=== PATIENT | female | born 1990 | race Caucasian/White ===

== ENCOUNTER 2017-04-05 11:24 | Emergency (ER) | payer OTHER ==
[2017-04-05 11:29] VITALS: RESP 18
[2017-04-05] MEDS ORDERED: KETOROLAC 30 MG/ML 1 ML VIAL IVP STA (12:21)
[2017-04-05] MEDS ORDERED: cefTRIAXone 2,000 MG in SODIUM CHLORIDE 0.9% 100 ML IVPB STA (12:29)
[2017-04-05 13:06] LABS: Anisocytosis Slight; Basophils % (A) 1 %; CH 27.2; CHCM 32.5; Eosinophils # (A) 0.1 k/uL (0-0.7); Eosinophils % (A) 2 %; HCT 36.1 % (34.0-46.0); HDW 2.62; HGB 11.4 gm/dL (11.4-16.0); Luc # (Auto) 0.14; Luc % (Auto) 2; Lymphocytes # (A) 2.5 k/uL (1.0-4.8); Lymphocytes % (A) 35 %; MCH 26.6 pg (25.0-35.0); MCHC 31.7 g/dL (31.0-37.0); MCV 83.9 fL (80.0-100.0); Mean Platelet Volume 7.1; Monocytes # (A) 0.4 k/uL (0-1.0); Monocytes % (A) 6 %; Neutrophils # (A) 3.9 k/uL (1.3-7.7); Neutrophils % (A) 55 %; WBC 7.1 k/uL (3.8-10.6); WBC (Perox) 7.06
--- NOTE | 2017-04-05 14:09 | CT ---
EXAMINATION TYPE: CT brain wo con DATE OF EXAM: 04/05/2017 COMPARISON: NONE HISTORY: Eye swelling CT DLP: 1296.60 mGycm. Automated Exposure Control for Dose Reduction was Utilized. TECHNIQUE: CT scan of the head is performed without contrast. FINDINGS: There is no acute intracranial hemorrhage, mass effect, or midline shift identified. The ventricles and sulci are within normal limits in size. The globes are intact and the visualized sin uses are clear. Incidental note is made of left middle nasal turbinate romeo bullosa. Inferior nasal turbinate mucosal hypertrophy with mucoperiosteal thickening is appreciated. No fluid is seen within the anterior canals. Mastoid air cells are well aerated. Soft tissue swelling is seen in the supraorbital and periorbital region on the right extending over t he nasal bridge to overlie the medial canthus. Preseptal soft tissue swelling is localized and does n ot extend into the retrobulbar fat, intraconally or extraconally. There is no engorgement of the supe rior ophthalmic veins. Extraocular muscles are symmetric. Optic nerves are unremarkable. Lenses are i n place and orbits are symmetric. IMPRESSION: 1. No acute intracranial hemorrhage, mass effect, or midline shift is seen. 2. Preseptal right periorbital soft tissue swelling extending medially over the medial canthus and na edward bridge most commonly relates to preseptal periorbital cellulitis without extension into the retro bulbar fat. No focal fluid collection is seen to suggest abscess.
--- NOTE | 2017-04-05 14:13 | CT ---
EXAMINATION TYPE: CT orbits wo con DATE OF EXAM: 04/05/2017 COMPARISON: CT brain of the same date. HISTORY: Eye swelling CT DLP: 1296.60 mGycm Automated exposure control for dose reduction was used. FINDINGS: Soft tissue swelling is seen in the supraorbital and periorbital region on the right extending over t he nasal bridge to overlie the medial canthus. Preseptal soft tissue swelling is localized and does n ot extend into the retrobulbar fat, intraconally or extraconally. There is no engorgement of the supe rior ophthalmic veins. Extraocular muscles are symmetric. Optic nerves are unremarkable. Lenses are i n place and orbits are symmetric. Osseous structures are intact including the lamina papyracea are intact. No osseous erosion is seen d eep to the soft tissue swelling to indicate osteomyelitis. Paranasal sinuses are well aerated. Lacrim al glands are symmetric. Visualized portions of the brain are discussed in the CT brain dictation of the same date. IMPRESSION: Preseptal right periorbital soft tissue swelling extending medially over the medial canthus and nasal bridge most commonly relates to preseptal periorbital cellulitis without extension into the retrobul bar fat. No focal fluid collection is seen to suggest abscess.
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
[2017-04-05 15:11] VITALS: BP 99/59; PULSE 61; TEMP 97
== END 2017-04-05 15:18 | disposition home or self-care (01) ==
LOC: EC 11:24
DX: L03.213 Periorbital cellulitis (principal); Z88.0 Allergy status to penicillin
CPT/HCPCS: 36415; 85025; 70450; 70480; 99284; 96365; 96366; 96375; J0696; J1885

== ENCOUNTER 2018-02-02 20:54 | Emergency (ER) | payer OTHER ==
[2018-02-02 21:07] VITALS: BP 136/89; RESP 18; TEMP 98.1
[2018-02-02] MEDS ORDERED: CLINDAMYCIN 150 MG CAP PO STA (21:12)
[2018-02-02] MEDS ORDERED: IBUPROFEN 600 MG TAB PO STA (21:13)
[2018-02-02] MEDS ORDERED: ACET/COD 300 MG/30 MG STARTER PACK 6 TAB BTL PO STA (21:13)
--- NOTE | 2018-02-02 21:24 | ED ---
ENT HPI - General Chief complaint: Dental/Oral Stated complaint: jaw & ear pain Time Seen by Provider: 02/02/18 21:06 Source: patient, RN notes reviewed Mode of arrival: ambulatory Limitations: no limitations - History of Present Illness Initial comments: This is a 27-year-old female who presents to the emergency department with chief complaint of dental pain. Patient states that for the past 3 days she has been experiencing left lower dental pain. She states that she has "bad teeth." She states that she has been taking ibuprofen and Tylenol with minimal relief. She states that she does not have dental insurance and has not followed up with a dentist. Denies fevers or chills, chest pain or shortness of breath, abdominal pain, nausea or vomiting. - Related Data Previous Rx's Medication Instructions Recorded Clindamycin [Cleocin] 450 mg PO TID #90 cap 02/02/18 Allergies Allergy/AdvReac Type Severity Reaction Status Date / Time Penicillins Allergy Rash/Hives Verified 02/02/18 21:06 Review of Systems ROS Statement: Those systems with pertinent positive or pertinent negative responses have been documented in the HPI. ROS Other: All systems not noted in ROS Statement are negative. Past Medical History Past Medical History: Asthma Additional Past Medical History / Comment(s): Patient has 4 living children from 3 pregnancies. She's had section and tubal ligation. History of Any Multi-Drug Resistant Organisms: None Reported Past Surgical History: Adenoidectomy, Appendectomy, Section, Ear Surgery, Tubal Ligation Additional Past Surgical History / Comment(s): Tubes in bilat ears Past Anesthesia/Blood Transfusion Reactions: No Reported Reaction Past Psychological History: Anxiety, Depression Smoking Status: Never smoker Past Alcohol Use History: None Reported Past Drug Use History: None Reported General Exam - General Exam Comments Initial Comments: General: Awake and alert, well-developed; in no apparent distress. HEENT: Head atraumatic, normocephalic. Pupils are equal, round and reactive to light. Extraocular movements intact. Oropharynx moist without erythema or exudate. Poor dentition throughout with missing crowns of teeth 18, 19 and 20. Tenderness along the gumline. No masses or areas of fluctuance noted. No facial swelling noted. Neck: Supple. Normal ROM. Cardiovascular: Regular rate and rhythm. No murmurs, rubs or gallops. Chest symmetrical. Respiratory: Lungs clear to auscultation bilaterally. No wheezes, rales or rhonchi. Normal respiratory effort with no use of accessory muscles. Musculoskeletal: Normal ROM, no tenderness bilateral upper and lower extremities. Ambulating normally. Skin: [place], warm and dry without rashes or lesions. Neurological: Alert and oriented x3. CN II-XII grossly intact. Speech is fluent and answers are appropriate. No focal neuro deficits. Psychiatric: Patient appears anxious and jittery. Limitations: no limitations Course Vital Signs 02/02/18 21:04 Temperature 98.1 F Pulse Rate 115 H Respiratory 18 Rate Blood Pressure 136/89 O2 Sat by Pulse 98 Oximetry Medical Decision Making - Medical Decision Making This is a 27-year-old female who presents to the emergency department with chief complaint of left lower dental pain. Patient is missing crowns of teeth 18, 19 and 20. This area is tender. No masses noted. Patient will be started on clindamycin. She is advised to take ibuprofen. She will be given a starter pack for Tylenol with Codeine. MAPS reviewed and no prescriptions were identified for patient. She did sign the "opioids start talking" paperwork. Recommended only taking for extreme pain. Patient will be given contact information to follow up to [facility] dental plan. Patient is in no acute distress and will be discharged home at this time. She is in agreement with plan and voices understanding. All questions answered. Disposition Clinical Impression: Dental caries Disposition: HOME SELF-CARE Condition: Good Instructions: Dental Caries (ED) Additional Instructions: Please take medications as prescribed. Please follow up with primary care provider within 1-2 days. Return to emergency department if symptoms should worsen or any concerns arise. Please follow up with the [facility] dental clinic. [facility] [place] [address]. Phone number for new patients or [phone] for existing patients. Prescriptions: Clindamycin [Cleocin] 450 mg PO TID #90 cap Is patient prescribed a controlled substance at d/c from ED?: No Referrals: None,Stated [Primary Care Provider] - 1-2 days Time of Disposition: 21:20
[2018-02-02 21:46] VITALS: PULSE 95
== END 2018-02-02 21:32 | disposition home or self-care (01) ==
LOC: EC 20:54
DX: K02.9 Dental caries, unspecified (principal); Z88.0 Allergy status to penicillin
CPT/HCPCS: 99282

== ENCOUNTER 2023-05-18 03:08 | Inpatient (IN) | payer OTHER ==
[2023-05-18] MEDS ORDERED: VANCOMYCIN IV PER PHARMACY 1 EACH MISC MISCELLANE PRN (03:43)
[2023-05-18] MEDS ORDERED: MORPHINE SULFATE 4 MG/ML SYRINGE IVP STA ×2 (03:43→05:36)
[2023-05-18] MEDS ORDERED: SODIUM CHLORIDE 0.9% 1,000 ML IV STA (03:44)
[2023-05-18] MEDS ORDERED: DIPH,PERTUS(ACELL)TETVAC-LF 0.5 ML VIAL IM ONE (04:15)
--- NOTE | 2023-05-18 04:20 | ED ---
General Adult HPI - General Chief complaint: Skin/Abscess/Foreign Body Stated complaint: Spider Bite Left hand Time Seen by Provider: 05/18/23 03:28 Source: patient, RN notes reviewed, old records reviewed Mode of arrival: ambulatory Limitations: no limitations - History of Present Illness Initial comments: Patient is a 32-year-old female with past medical history history remarkable for previous episode of MRSA, asthma who presents emergency Department complaining of a spider bite. States it was brown in color but unableto provide any further details. She was bit on the left hand. States that since that time and has become more swollen, and she is concerned for worsening infection. Has a difficult time making a fist. His pain at this site. States it has been draining somewhat. Endorses chills. Denies any known fevers. Has been taking Motrin for pain without much improvement which is fresh presents for further evaluation at this time. No history of immunocompromise state. - Related Data Previous Rx's Medication Instructions Recorded Acetaminophen Tab [Tylenol] 650 mg PO Q6HR PRN tab 12/06/22 Ibuprofen [Motrin] 800 mg PO Q8H 3 Days #9 tab 12/06/22 Allergies Allergy/AdvReac Type Severity Reaction Status Date / Time Penicillins Allergy Rash/Hives Verified 05/18/23 03:14 Review of Systems ROS Statement: Those systems with pertinent positive or pertinent negative responses have been documented in the HPI. Review of Systems: CONST: Denies fever EYES: Denies blurry vision ENT: Denies nasal congestion C/V: Denies Chest pain RESP: Denies shortness of breath GI: Denies abdominal pain : Denies dysuria SKIN: Endorses spider bite, left hand infection MSK: Denies joint pain. NEURO: Denies headache ROS Other: All systems not noted in ROS Statement are negative. Past Medical History Past Medical History: Asthma Additional Past Medical History / Comment(s): Patient has 5 living children from 4 pregnancies. She's had section and tubal ligation. History of Any Multi-Drug Resistant Organisms: MRSA Date of last positivie culture/infection: 11/27/22 MDRO Source:: Left Foot Past Surgical History: Adenoidectomy, Appendectomy, Section, Ear Surgery, Tubal Ligation Additional Past Surgical History / Comment(s): Tubes in bilat ears Past Anesthesia/Blood Transfusion Reactions: No Reported Reaction Past Psychological History: Anxiety, Depression Smoking Status: Former smoker Past Alcohol Use History: None Reported Past Drug Use History: Marijuana General Exam - General Exam Comments Initial Comments: General: Appears in mild to moderate distress secondary to pain. HEAD: Normal with no signs of head trauma. EYES: PERRLA, EOMI, conjunctiva normal, no discharge. ENT: Hearing grossly intact, normal oropharynx. RESPIRATORY: Clear breath sounds bilaterally. No wheezes, rales, or rhonchi. C/V: Tachycardic with regular rhythm. S1 and S2 auscultated. Peripheral pulses 2+ intact throughout. ABD: Abd is soft, nontender, nondistended EXT: Decreased range of motion of the left hand secondary to edema and pain. SKIN: Patient has what appears to be a spider bite located over the dorsal aspect of the left hand. Mild drainage from a site of fluctuance, with concern for abscess approximately the size of a ping-pong ball.. Erythema and edema present. NEURO: Alert and oriented 4. Limitations: no limitations Course Vital Signs 05/18/23 03:14 Temperature 98.6 F Pulse Rate 130 H Respiratory 24 Rate Blood Pressure 111/73 O2 Sat by Pulse 96 Oximetry Medical Decision Making - Medical Decision Making Was pt. sent in by a medical professional or institution (RAHUL Dumont, CIVIL DEFENSE DIRECTOR, urgent care, hospital, or group home...) When possible be specific @ -No Did you speak to anyone other than the patient for history (EMS, parent, family, police, friend...)? What history was obtained from this source @ -No Did you review nursing and triage notes (agree or disagree)? Why? @ -I reviewed and agree with nursing and triage notes Were old charts reviewed (outside hosp., previous admission, EMS record, old EKG, old radiological studies, urgent care reports/EKG's, group home records)? Report findings @ -No old charts were reviewed Differential Diagnosis (chest pain, altered mental status, abdominal pain women, abdominal pain men, vaginal bleeding, weakness, fever, dyspnea, syncope, headache, dizziness, GI bleed, back pain, seizure, CVA, palpatations, mental health, musculoskeletal)? @ -Cellulitis, spider bite, abscess, soft tissue infection, sepsis. This list is not all inclusive. EKG interpreted by me (3pts min.). @ -None done X-rays interpreted by me (1pt min.). @ -X-ray reveals soft tissue edema. No obvious bony injury or involvement. CT interpreted by me (1pt min.). @ -None done U/S interpreted by me (1pt. min.). @ -None done What testing was considered but not performed or refused? (CT, X-rays, U/S, labs)? Why? @ -None What meds were considered but not given or refused? Why? @ -None Did you discuss the management of the patient with other professionals (professionals i.e. , PA, CIVIL DEFENSE DIRECTOR, lab, RT, psych nurse, social insurance adviser, pillowcase folder, te acher, fundraising officer, medical case worker)? Give summary @ -Discussed with Dr. barakat who accepted the admission as a city call admit. Requested consults infectious disease as well as orthopedics be placed. Was smoking cessation discussed for >3mins.? @ -No Was critical care preformed (if so, how long)? @ -No Were there social determinants of health that impacted care today? How? (Homelessness, low income, unemployed, alcoholism, drug addiction, transportation, low edu. Level, literacy, decrease access to med. care, snf, rehab)? @ -No Was there de-escalation of care discussed even if they declined (Discuss DNR or withdrawal of care, Hospice)? DNR status @ -No What co-morbidities impacted this encounter? (DM, HTN, Smoking, COPD, CAD, Cancer, CVA, ARF, Chemo, Hep., AIDS, mental health diagnosis, sleep apnea, morbid obesity)? @ -None Was patient admitted / discharged? Hospital course, mention meds given and route, prescriptions, significant lab abnormalities, going to OR and other pertinent info. @ -Based on the patient's presentation and physical exam, there is concern for cellulitis as well as an infection of the left hand. I believe patient will likely be admitted for IV antibiotics. We will obtain blood cultures. Likely we'll obtain cultures. We will obtain x-ray of the left hand. Patient will be empirically started on vancomycin at this time. She'll be given analgesia medications and 1 L fluid bolus. Tetanus will be updated. Vital signs are hemodynamically stable other than for a tachycardia likely secondary to pain. She also appears anxious. She was in agreement this plan. Patient's laboratory studies are remarkable for absence leukocytosis. Lactic acid within normal limits. No evidence of coagulopathy. CPK within normal limits. On reevaluation, I attempted to I&D of the patient's abscess however the patient refused further intervention following cleaning and anesthetizing the site with lidocaine. Poking it with the needle did relieve some pressure and the wound is actively draining pus. Wound cultures were obtained and sent. Patient refused incision and drainage with scalpel multiple times. Due to the level of swelling as well as the concern for infection I do believe it is best to observe the patient and admit for IV antibiotics. She was in agreement this plan. I spoke with the admitting team, Dr. barakat of [facility] who accepted the admission. He requested consults to infectious disease and ort hopedics be placed. This was completed. Undiagnosed new problem with uncertain prognosis? @ -No Drug Therapy requiring intensive monitoring for toxicity (Heparin, Nitro, Insulin, Cardizem)? @ -No Were any procedures done? @ -No Diagnosis/symptom? @ -Spider bite, cellulitis, abscess Acute, or Chronic, or Acute on Chronic? @ -Acute Uncomplicated (without systemic symptoms) or Complicated (systemic symptoms)? @ -Complicated Side effects of treatment? @ -none Exacerbation, Progression, or Severe Exacerbation] @ -no Poses a threat to life or bodily function? @ -yes - Lab Data Result diagrams: 05/18/23 03:52 05/18/23 03:52 Lab Results 05/18/23 05/18/23 05/18/23 Range/Units 03:52 03:52 03:52 WBC 9.8 (3.8-10.6) k/uL RBC 4.33 (3.80-5.40) m/uL Hgb 10.6 L (11.4-16.0) gm/dL Hct 33.7 L (34.0-46.0) % MCV 77.9 L (80.0-100.0) fL MCH 24.6 L (25.0-35.0) pg MCHC 31.6 (31.0-37.0) g/dL RDW 17.7 H (11.5-15.5) % Plt Count 307 (150-450) k/uL MPV 8.0 Neutrophils % 85 % Lymphocytes % 10 % Monocytes % 3 % Eosinophils % 1 % Basophils % 0 % Neutrophils # 8.3 H (1.3-7.7) k/uL Lymphocytes # 0.9 L (1.0-4.8) k/uL Monocytes # 0.3 (0-1.0) k/uL Eosinophils # 0.1 (0-0.7) k/uL Basophils # 0.0 (0-0.2) k/uL Hypochromasia Slight Anisocytosis Slight Microcytosis Slight PT (10.0-12.5) sec INR (<1.2) APTT (22.0-30.0) sec Sodium 133 L (137-145) mmol/L Potassium 4.5 (3.5-5.1) mmol/L Chloride 99 (98-107) mmol/L Carbon Dioxide 23 (22-30) mmol/L Anion Gap 11 mmol/L BUN 10 (7-17) mg/dL Creatinine 0.50 L (0.52-1.04) mg/dL Est GFR (CKD-EPI)AfAm >90 (>60 ml/min/1.73 sqM) Est GFR (CKD-EPI)NonAf >90 (>60 ml/min/1.73 sqM) Glucose 106 H (74-99) mg/dL Plasma Lactic Acid Get 1.7 (0.7-2.0) mmol/L Calcium 9.1 (8.4-10.2) mg/dL Total Bilirubin 0.6 (0.2-1.3) mg/dL AST 56 H (14-36) U/L ALT 45 H (4-34) U/L Alkaline Phosphatase 178 H (38-126) U/L Creatine Kinase <20 L (30-135) U/L Total Protein 7.8 (6.3-8.2) g/dL Albumin 3.9 (3.5-5.0) g/dL 05/18/23 Range/Units 04:27 WBC (3.8-10.6) k/uL RBC (3.80-5.40) m/uL Hgb (11.4-16.0) gm/dL Hct (34.0-46.0) % MCV (80.0-100.0) fL MCH (25.0-35.0) pg MCHC (31.0-37.0) g/dL RDW (11.5-15.5) % Plt Count (150-450) k/uL MPV Neutrophils % % Lymphocytes % % Monocytes % % Eosinophils % % Basophils % % Neutrophils # (1.3-7.7) k/uL Lymphocytes # (1.0-4.8) k/uL Monocytes # (0-1.0) k/uL Eosinophils # (0-0.7) k/uL Basophils # (0-0.2) k/uL Hypochromasia Anisocytosis Microcytosis PT 11.7 (10.0-12.5) sec INR 1.1 (<1.2) APTT 23.0 (22.0-30.0) sec Sodium (137-145) mmol/L Potassium (3.5-5.1) mmol/L Chloride (98-107) mmol/L Carbon Dioxide (22-30) mmol/L Anion Gap mmol/L BUN (7-17) mg/dL Creatinine (0.52-1.04) mg/dL Est GFR (CKD-EPI)AfAm (>60 ml/min/1.73 sqM) Est GFR (CKD-EPI)NonAf (>60 ml/min/1.73 sqM) Glucose (74-99) mg/dL Plasma Lactic Acid Get (0.7-2.0) mmol/L Calcium (8.4-10.2) mg/dL Total Bilirubin (0.2-1.3) mg/dL AST (14-36) U/L ALT (4-34) U/L Alkaline Phosphatase (38-126) U/L Creatine Kinase (30-135) U/L Total Protein (6.3-8.2) g/dL Albumin (3.5-5.0) g/dL Disposition Clinical Impression: Cellulitis, Abscess, Spider bite Disposition: ADMITTED IP TO THIS [facility] Condition: Stable Time of Disposition: 06:14
[2023-05-18 04:25] LABS: Anisocytosis Slight; Basophils % (A) 0 %; Eosinophils # (A) 0.1 k/uL (0-0.7); Eosinophils % (A) 1 %; HCT 33.7 % (34.0-46.0); HGB 10.6 gm/dL (11.4-16.0); Hypochromasia Slight; Lymphocytes # (A) 0.9 k/uL (1.0-4.8); Lymphocytes % (A) 10 %; MCH 24.6 pg (25.0-35.0); MCHC 31.6 g/dL (31.0-37.0); MCV 77.9 fL (80.0-100.0); Microcytosis Slight; Monocytes # (A) 0.3 k/uL (0-1.0); Monocytes % (A) 3 %; Neutrophils # (A) 8.3 k/uL (1.3-7.7); Neutrophils % (A) 85 %; Platelet Count 307 k/uL (150-450); RBC 4.33 m/uL (3.80-5.40); RDW 17.7 % (11.5-15.5); WBC 9.8 k/uL (3.8-10.6)
[2023-05-18 04:48] LABS: ALT 45 U/L (4-34); AST 56 U/L (14-36); African American GFR (CKD) >90 (>60 ml/min/1.73 sqM); Albumin 3.9 g/dL (3.5-5.0); Alkaline Phosphatase 178 U/L (38-126); Anion Gap 11 mmol/L; Blood Urea Nitrogen 10 mg/dL (7-17); Calcium 9.1 mg/dL (8.4-10.2); Carbon Dioxide 23 mmol/L (22-30); Chloride 99 mmol/L (98-107); Creatine Kinase <20 U/L (30-135); Glucose 106 mg/dL (74-99); Non-African American GFR(CKD) >90 (>60 ml/min/1.73 sqM); Potassium 4.5 mmol/L (3.5-5.1); Sodium 133 mmol/L (137-145); Total Bilirubin 0.6 mg/dL (0.2-1.3); Total Protein 7.8 g/dL (6.3-8.2)
[2023-05-18 04:52] LABS: INR 1.1 (<1.2); Prothrombin Time 11.7 sec (10.0-12.5)
[2023-05-18] MEDS ORDERED: VANCOMYCIN 1,000 MG in SODIUM CHLORIDE 0.9% 250 ML IVPB ONE (05:00)
[2023-05-18] MEDS ORDERED: LIDOCAINE 2% INJ 20 MG/ML (20 ML MDV) SQ STA (05:37)
[2023-05-18] MEDS ORDERED: NALOXONE 0.4 MG/ML 1 ML VIAL IV PRN (06:07)
[2023-05-18] MEDS ORDERED: ONDANSETRON 4 MG/2 ML VIAL IVP PRN (07:30)
--- NOTE | 2023-05-18 07:34 | XR ---
EXAMINATION TYPE: XR hand complete LT DATE OF EXAM: 05/18/2023 CLINICAL HISTORY: pain TECHNIQUE: Frontal, lateral and oblique images of the left hand are obtained. COMPARISON: None. FINDINGS: There is no acute fracture/dislocation evident. The joint spaces appear within normal limi ts. There is soft tissue swelling overlying the dorsum of the left hand. There is no evidence for ost eomyelitis. IMPRESSION: There is no acute fracture or dislocation. ICD 10 NO FRACTURE, INITIAL EVALUATION
[2023-05-18] MEDS: MORPHINE SULFATE 4 MG/ML SYRINGE IV PRN ×5 (08:29→21:12)
--- NOTE | 2023-05-18 10:19 | P.CNOR ---
History of Present Illness - [facility] Consult date: 05/18/23 Consult reason: other (Hand cellulitis) History of present illness: 32 yo femalepresents after sustaining what she states is a spider bite to her left ulnar dorsal hand. This seemed to fester and get worse and so skin emergency department. In the emergency department they did open it up at bedside and she states this is very painful. She states it is lot purulence was removed from this. She denies a numbness or tingling. She denies any fevers or chills. She states that she does have pain in the fingers and a dessert. She denies any fevers chills shortness of breath or chest pain at this time. Review of Systems 14 points review of systems completed and as stated in HPI, all other systems reviewed are negative. Past Medical History Past Medical History: Asthma Additional Past Medical History / Comment(s): Patient has 5 living children from 4 pregnancies. She's had section and tubal ligation. History of Any Multi-Drug Resistant Organisms: MRSA Year Discovered:: 11/27/22 MDRO Source:: Left Foot Past Surgical History: Adenoidectomy, Appendectomy, Section, Ear Surgery, Tubal Ligation Additional Past Surgical History / Comment(s): Tubes in bilat ears Past Anesthesia/Blood Transfusion Reactions: No Reported Reaction Past Psychological History: Anxiety, Depression Smoking Status: Former smoker Past Alcohol Use History: None Reported Past Drug Use History: Marijuana Medications and Allergies Home Medications Medication Instructions Recorded Confirmed Type Acetaminophen Tab [Tylenol] 650 mg PO Q6HR PRN tab 12/06/22 Rx Ibuprofen [Motrin] 800 mg PO Q8H 3 Days #9 tab 12/06/22 Rx Allergies Allergy/AdvReac Type Severity Reaction Status Date / Time Penicillins Allergy Rash/Hives Verified 05/18/23 03:14 Physical Examination Osteopathic Statement: *. No significant issues noted on an osteopathic structural exam other than those noted in the History and Physical/Consult. Physical Exam: the patient would not allow me to fully examine her handshe refused -Patient is alert and oriented 3 appears well-nourished well-hydrated is in no acute distress. They do not appear septic. -There is TTP dorsal aspect of the left hand and fingers. No fusiform swelling no flexor tendon sheath pain -Upper extremities show [5] out of 5 strength in all major muscle groups. left hand -Lower extremities with [5] out of 5 strength in all major muscle groups [##EXCEPT] -There is [FROM] that is [painless] of the b/l UE and LE in all major joints. [log roll] [SLR] [EXCEPT] -They are intact to light touch sensation in C5 to T1 and L2 to S1 nerve d istribution. -Patient has palpable distal pulses all 4 ext -Compartments are soft and compressible. -Patient shows a negative Nettie's Cranial nerves II through XII are grossly intact. Results left hand imaging reviewed. This demonstrates soft tissue swelling over the dorsal ulnar aspect of the left hand. No fractures or dislocations noted. Alignment is stable. - Labs Labs: Abnormal Lab Results - Last 24 Hours (Table) 05/18/23 05/18/23 Range/Units 03:52 03:52 Hgb 10.6 L (11.4-16.0) gm/dL Hct 33.7 L (34.0-46.0) % MCV 77.9 L (80.0-100.0) fL MCH 24.6 L (25.0-35.0) pg RDW 17.7 H (11.5-15.5) % Neutrophils # 8.3 H (1.3-7.7) k/uL Lymphocytes # 0.9 L (1.0-4.8) k/uL Sodium 133 L (137-145) mmol/L Creatinine 0.50 L (0.52-1.04) mg/dL Glucose 106 H (74-99) mg/dL AST 56 H (14-36) U/L ALT 45 H (4-34) U/L Alkaline Phosphatase 178 H (38-126) U/L Creatine Kinase <20 L (30-135) U/L H & H 05/18/23 Range/Units 03:52 Hgb 10.6 L (11.4-16.0) gm/dL Hct 33.7 L (34.0-46.0) % Coagulation 05/18/23 Range/Units 04:27 INR 1.1 (<1.2) Result Diagrams: 05/18/23 03:52 05/18/23 03:52 Assessment and Plan Assessment: There is 32-year-old female status post spider bite with hand cellulitis and possible abscess status post bedside drainage by ED Plan: -Appreciate physician practice consultant and team management. -nonweightbearing left upper extremity -Activity: Ambulate QID, OOB all meals, up and about, Use walker or cane if needed for stability. -Daily PT/OT, increase ambulation strength and balance. -Pain control: [Adequate at this time] -Meds: [reviewed] -GI ppx: senna, Miralax -DVT PPX: mechanical -Hygiene: Shower today. Maintain dressing clean and dry. Meticulous cleaning after BMs away from incision site -Encourage IS 10x/hr -Dispo: discussed with her Hibiclens soaks as well as possible need for formal irrigation and debridement we will see how antibiotics do for her over the next 24 hours if she is not better than she may need to go to the OR for this. She agrees.
[2023-05-18] MEDS: VANCOMYCIN 1,000 MG in SODIUM CHLORIDE 0.9% 250 ML IVPB SCH ×2 (12:55→20:03)
--- NOTE | 2023-05-18 14:13 | P.HPIM ---
History of Present Illness A pleasant 32 years old female with past medical history of asthma. Patient presents because of left hand pain and swelling stating that she has a spider bit her about 2 days ago on admission patient is tachycardic Labs showed WBCs 9.8, hemoglobin 10.6. Trace of 60, INR, BMP and liver enzymes are unremarkable except for mildly elevated AST and ALT. Hand x-ray: No acute fracture or dislocation Patient already started on IV vancomycin. Orthopedic team evaluated the patient and plan for I and D tomorrow Preoperative test patient declined, risks benefits are explained She denies smoking alcohol or illicit drugs. She states she used to use illicit drugs last time was less November Review of Systems Review of systems CONSTITUTIONAL: No fever, no malaise, no fatigue. HEENT: No recent visual problems or hearing problems. Denied any sore throat. CARDIOVASCULAR: No orthopnea, PND, no palpitations, no syncope. PULMONARY: No shortness of breath, no cough, no hemoptysis. GASTROINTESTINAL: No diarrhea, no nausea, no vomiting, no abdominal pain. Normoactive bowel sounds. NEUROLOGICAL: No headaches, no weakness, no numbness. HEMATOLOGICAL: Denies any bleeding or petechiae. GENITOURINARY: Denies any burning micturition, frequency, or urgency. MUSCULOSKELETAL/RHEUMATOLOGICAL: Denies any joint pain, swelling, or any muscle pain. ENDOCRINE: Denies any polyuria or polydipsia. Past Medical History Past Medical History: Asthma Additional Past Medical History / Comment(s): Patient has 5 living children from 4 pregnancies. She's had section and tubal ligation. History of Any Multi-Drug Resistant Organisms: MRSA Date of last positivie culture/infection: 11/27/22 MDRO Source:: Left Foot Past Surgical History: Adenoidectomy, Appendectomy, Section, Ear Surgery, Tubal Ligation Additional Past Surgical History / Comment(s): Tubes in bilat ears Past Anesthesia/Blood Transfusion Reactions: No Reported Reaction Past Psychological History: Anxiety, Depression Smoking Status: Former smoker Past Alcohol Use History: None Reported Past Drug Use History: Marijuana Medications and Allergies Home Medications Medication Instructions Recorded Confirmed Type Acetaminophen Tab [Tylenol] 650 mg PO Q6HR PRN 05/18/23 05/18/23 History Ibuprofen [Motrin Ib] 800 mg PO Q8H PRN 05/18/23 05/18/23 History Allergies Allergy/AdvReac Type Severity Reaction Status Date / Time Penicillins Allergy Rash/Hives Verified 05/18/23 11:08 Physical Exam Vitals: Vital Signs Temp Pulse Resp BP Pulse Ox 05/18/23 08:18 98.7 F 101 H 20 97/49 98 05/18/23 07:03 104 H 20 110/70 97 05/18/23 03:14 98.6 F 130 H 24 111/73 96 Intake and Output 05/17/23 05/18/23 05/18/23 22:59 06:59 14:59 Other: Weight 62.596 kg 62.596 kg GENERAL: The patient is alert and oriented x3, not in any acute distress. Well developed, well nourished. HEENT: Pupils are round and equally reacting to light. EOMI. No scleral icterus. No conjunctival pallor. Normocephalic, atraumatic. No pharyngeal erythema. No thyromegaly. CARDIOVASCULAR: S1 and S2 present. No murmurs, rubs, or gallops. PULMONARY: Chest is clear to auscultation, no wheezing , no crackles. ABDOMEN: Soft, nontender, nondistended, normoactive bowel sounds. No palpable organomegaly. MUSCULOSKELETAL: No joint swelling or deformity. Left hand swollen right and tender EXTREMITIES: No cyanosis, clubbing, or pedal edema. NEUROLOGICAL: Gross neurological examination did not reveal any focal deficits. SKIN: No rashes. no petechiae. Results CBC & Chem 7: 05/18/23 03:52 05/18/23 03:52 Labs: Abnormal Lab Results - Last 24 Hours (Table) 05/18/23 05/18/23 Range/Units 03:52 03:52 Hgb 10.6 L (11.4-16.0) gm/dL Hct 33.7 L (34.0-46.0) % MCV 77.9 L (80.0-100.0) fL MCH 24.6 L (25.0-35.0) pg RDW 17.7 H (11.5-15.5) % Neutrophils # 8.3 H (1.3-7.7) k/uL Lymphocytes # 0.9 L (1.0-4.8) k/uL Sodium 133 L (137-145) mmol/L Creatinine 0.50 L (0.52-1.04) mg/dL Glucose 106 H (74-99) mg/dL AST 56 H (14-36) U/L ALT 45 H (4-34) U/L Alkaline Phosphatase 178 H (38-126) U/L Creatine Kinase <20 L (30-135) U/L Thrombosis Risk Factor Assmnt - Choose All That Apply Any of the Below Risk Factors Present?: No Other Risk Factors: No Thrombosis Risk Factor Assessment Level: Very Low Risk Assessment and Plan Assessment: Left hand cellulitis, secondary to spider bite as per patient History of asthma Plan: continue with IV vancomycin Monitor creatinine and vitals Orthopedic and infectious disease consult patient may benefit from I&D by orthopedic team tomorrow Labs and medication were reviewed.. Continue same treatment. Continue with symptomatic treatment. Resume home medication. Monitor labs and vitals. DVT and GI prophylaxis. Further recommendations as per clinical course of the patient DVT prophylaxis: Subcutaneous heparin GI Prophylaxis: Pepcid PT/OT: Pending Prognosis is guarded
[2023-05-18] MEDS: HEPARIN SODIUM,PORCINE 5,000 UNIT/ML 1 ML VIAL SQ SCH (20:03)
[2023-05-18] MEDS: FAMOTIDINE 20 MG/2 ML VIAL IV SCH (20:46)
[2023-05-18] MEDS: ACETAMINOPHEN TAB 325 MG TAB PO PRN (20:46)
--- NOTE | 2023-05-18 21:35 | P.CONS ---
History of Present Illness - Reason for Consult Consult date: 05/18/23 - History of Present Illness Patient is a 32-year-old female with a past medical history significant for asthma previous history of MRSA skin and soft tissue infection, presenting to the ER for evaluation of left hand pain swelling and redness that the pain has been getting worse for the last 2 days patient mentioning related to a spider bite has been complaining of pain to the left hand to be throbbing intensity is almost 10 out of 10 without any radiation did have some drainage patient complaining of some chills but no fever was recorded on presentation to the hospital patient was tachycardic did have a normal white count kidney function was normal liver enzymes are elevated patient did have x-ray of the hand no acute fracture or dislocation patient did have I&D in the ER culture has been obtained subsequently has been evaluated by orthopedics and possible drain for further drainage tomorrow if no improvement as per discussion with the nursing staff patient was started on vancomycin infectious was consulted for further management of antibiotic therapy Past Medical History Past Medical History: Asthma Additional Past Medical History / Comment(s): Patient has 5 living children from 4 pregnancies. She's had section and tubal ligation. History of Any Multi-Drug Resistant Organisms: MRSA Year Discovered:: 11/27/22 MDRO Source:: Left Foot Past Surgical History: Adenoidectomy, Appendectomy, Section, Ear Surgery, Tubal Ligation Additional Past Surgical History / Comment(s): Tubes in bilat ears Past Anesthesia/Blood Transfusion Reactions: No Reported Reaction Past Psychological History: Anxiety, Depression Smoking Status: Former smoker Past Alcohol Use History: None Reported Past Drug Use History: Marijuana Medications and Allergies Home Medications Medication Instructions Recorded Confirmed Type Acetaminophen Tab [Tylenol] 650 mg PO Q6HR PRN 05/18/23 05/18/23 History Ibuprofen [Motrin Ib] 800 mg PO Q8H PRN 05/18/23 05/18/23 History Allergies Allergy/AdvReac Type Severity Reaction Status Date / Time Penicillins Allergy Rash/Hives Verified 05/18/23 11:08 Physical Exam Vitals: Vital Signs Temp Pulse Resp BP Pulse Ox 05/18/23 08:18 98.7 F 101 H 20 97/49 98 05/18/23 07:03 104 H 20 110/70 97 05/18/23 03:14 98.6 F 130 H 24 111/73 96 Intake and Output 05/17/23 05/18/23 05/18/23 22:59 06:59 14:59 Other: Weight 62.596 kg Results CBC & Chem 7: 05/18/23 03:52 05/18/23 03:52 Labs: Abnormal Lab Results - Last 24 Hours (Table) 05/18/23 05/18/23 Range/Units 03:52 03:52 Hgb 10.6 L (11.4-16.0) gm/dL Hct 33.7 L (34.0-46.0) % MCV 77.9 L (80.0-100.0) fL MCH 24.6 L (25.0-35.0) pg RDW 17.7 H (11.5-15.5) % Neutrophils # 8.3 H (1.3-7.7) k/uL Lymphocytes # 0.9 L (1.0-4.8) k/uL Sodium 133 L (137-145) mmol/L Creatinine 0.50 L (0.52-1.04) mg/dL Glucose 106 H (74-99) mg/dL AST 56 H (14-36) U/L ALT 45 H (4-34) U/L Alkaline Phosphatase 178 H (38-126) U/L Creatine Kinase <20 L (30-135) U/L Assessment and Plan Plan: 1patient with a left hand abscess and cellulitis likely from gram-positive skin codie questionable related to IV drugs the patient is complaining of related to a spider bite and likely from gram-positive skin codie such as MRSA 2-patient likely benefit from further surgical drainage and deep culture 3-vancomycin pharmacy to dose with a target trough of 15 while watching kidney function and Vanco trough closely. 4-elevated liver enzymes we will check hepatitis panel We will follow on clinical condition and cultures to further adjust medication if needed Thank you for this consultation we will follow the patient along with you Dictation was produced using [employer] dictation software. please excuse any grammatical, word or spelling errors. Time with Patient: Greater than 30
[2023-05-19] MEDS: MORPHINE SULFATE 4 MG/ML SYRINGE IV PRN ×7 (02:22→21:09)
[2023-05-19] MEDS: VANCOMYCIN 1,000 MG in SODIUM CHLORIDE 0.9% 250 ML IVPB SCH ×3 (05:02→21:09)
[2023-05-19] MEDS: FAMOTIDINE 20 MG/2 ML VIAL IV SCH ×2 (08:35→20:05)
[2023-05-19] MEDS: HEPARIN SODIUM,PORCINE 5,000 UNIT/ML 1 ML VIAL SQ SCH ×2 (08:36→20:05)
[2023-05-19] MEDS: ACETAMINOPHEN TAB 325 MG TAB PO PRN ×2 (08:36→20:04)
[2023-05-19 09:05] LABS: Basophils # (A) 0.02 X 10*3/uL (0.00-0.10); Basophils % (A) 0.3 %; Eosinophils # (A) 0.09 X 10*3/uL (0.04-0.35); Eosinophils % (A) 1.5 %; HCT 32.5 % (37.2-46.3); HGB 10.1 d/dL (12.0-15.0); Lymphocytes # (A) 0.88 X 10*3/uL (0.90-5.00); Lymphocytes % (A) 14.9 %; MCH 24.2 pg (27.0-32.0); MCHC 31.1 d/dL (32.0-37.0); MCV 77.9 FL (80.0-97.0); Mean Platelet Volume 11.5 FL (9.5-12.2); Monocytes # (A) 0.36 X 10*3/uL (0.20-1.00); Monocytes % (A) 6.1 %; NRBC Per 100 WBC 0 X 10*3/uL (0.00-0.01); Neutrophils # (A) 4.55 X 10*3/uL (1.80-7.70); Platelet Count 302 X 10*3/uL (140-440); RBC 4.17 X 10*6/uL (4.10-5.20); RDW 19.1 % (11.5-14.5); WBC 5.91 X 10*3/uL (4.50-10.00)
[2023-05-19 09:15] LABS: Calcium 8.8 mg/dL (8.7-10.3); Carbon Dioxide 22.8 mmol/L (21.6-31.8); Chloride 103 mmol/L (96-109); Glucose 110 mg/dL (70-110); Potassium 4.6 mmol/L (3.5-5.5); Sodium 135 mmol/L (135-145)
[2023-05-19 10:20] LABS: Hepatitis C IgG Antibody Reactive (Non-Reactive)
[2023-05-19] MEDS ORDERED: VANCOMYCIN TROUGH DUE 1 EACH MISC MISCELLANE ONE (12:00)
[2023-05-19 12:24] LABS: Hepatitis A Antibody IgM Nonreactive; Hepatitis B Core IgM Nonreactive; Hepatitis B Surface Antigen Nonreactive
--- NOTE | 2023-05-19 12:35 | P.PN ---
Subjective Progress Note Date: 05/19/23 Principal diagnosis: Left Hand cellulitis (spider bite) Patient seen and examined this morning. Patient is resting comfortably in bed. Left hand is elevated on a pillow. Serosanguineous, purulent drainage noted on dressing of left hand. Dressing was removed, there has been a decrease in erythema and edema since the initiation of IV antibiotic. Wound is continuing to drain. Patient reports increased ability to move her fingers. She states her that it continues to be very tender and painful. Patient denies any numbness or tingling. Informed patient that we need to proceed with an I&D of the right hand, patient is in agreement. All risks and benefits of surgical intervention have been discussed. Patient verbalizes understanding. Objective - Vital Signs Vital signs: Vital Signs Temp 100.1 F H 05/19/23 07:31 Pulse 85 05/19/23 08:36 Resp 16 05/19/23 08:36 BP 93/56 05/19/23 07:31 Pulse Ox 95 05/19/23 07:31 FiO2 Intake & Output 05/18/23 05/19/23 05/19/23 18:59 06:59 18:59 Weight 62.596 kg Other: Voiding Method Toilet Toilet # Voids 3 2 - Exam Inspection: Open wound to the dorsal region of the left hand. Serosanguineous, purulent drainage noted. There is erythema and edema to the dorsal region of the left hand into the digits. Sensation: Sensation is equal, symmetric, bilaterally intact throughout the upper and lower extremities Palpation: Extreme tenderness to palpation of the left hand area Range of motion: Patient does have full range of motion of the right upper and bilateral lower extremities on exam. Patient has limited range of motion of the left hand and fingers due to infectious process and pain. Motor: 5/5 in all major motor groups in the right upper and bilateral lower extremities. Special tests: Negative Homans bilaterally. Negative Jocelynn bilaterally. Negative clonus bilaterally. Neurovascular: Radial pulse intact, 2+ bilaterally. Cap refill under 3 seconds in digits upper extremities. - Labs CBC & Chem 7: 05/19/23 04:19 05/19/23 04:19 Labs: Abnormal Lab Results - Last 24 Hours (Table) 05/19/23 05/19/23 Range/Units 04:19 04:19 Hgb 10.1 L (12.0-15.0) d/dL Hct 32.5 L (37.2-46.3) % MCV 77.9 L (80.0-97.0) FL MCH 24.2 L (27.0-32.0) pg MCHC 31.1 L (32.0-37.0) d/dL RDW 19.1 H (11.5-14.5) % Lymphocytes # 0.88 L (0.90-5.00) X 10*3/uL BUN 6.0 L (9.0-27.0) mg/dL BUN/Creatinine Ratio 10.00 L (12.00-20.00) Ratio Assessment and Plan Assessment: Left hand cellulitis (spider bite) Left hand pain Plan: At this time we recommend an incision and drainage of left hand wound. We will book procedure for 05/21/23 and also obtain deep wound cultures. Appreciate medical management Continue with IV antibiotics. Continue to provide Hibiclens soaks for 20 min TID. Pain management - continue with IV and oral pain medications. Ice and elevate left hand. DVT prophylaxis - mechanical PT/OT - weightbearing as tolerated Appreciate consult
--- NOTE | 2023-05-19 19:44 | P.PN ---
Subjective Progress Note Date: 05/19/23 Principal diagnosis: Left hand abscess and Ch hepatitis C Patient is a 32-year-old female with a past medical history significant for asthma previous history of MRSA skin and soft tissue infection, presenting to the ER for evaluation of left hand pain swelling and redness patient did have bedside drainage subsequently admitted to hospital for IV antibiotic therapy. On today's evaluation that is 05/19/2023, patient did have a fever of 100.1 F this morning patient is breathing comfortably on room air no chest pain shortness of breath or cough no nausea no vomiting no abdominal pain pain to the left hand has slightly decreased in intensity. Patient did have a white count of 5.91, creatinine 0.6 hepatitis C antibody positive cultures are currently pending. Objective - Vital Signs Vital signs: Vital Signs Temp 98.1 F 05/19/23 13:50 Pulse 65 05/19/23 13:50 Resp 15 05/19/23 13:50 BP 92/43 05/19/23 13:50 Pulse Ox 99 05/19/23 13:50 FiO2 Intake & Output 05/18/23 05/19/23 05/19/23 18:59 06:59 18:59 Weight 62.596 kg Other: Voiding Method Toilet Toilet # Voids 3 2 3 - Exam GENERAL DESCRIPTION: Elderly male lying in bed in no distress RESPIRATORY SYSTEM: Unlabored breathing , decreased breath sounds at bases HEART: S1 S2 regular rate and rhythm ,no loud murmurs ABDOMEN: Soft , no tenderness EXTREMITIES: No edema feet - Labs CBC & Chem 7: 05/19/23 04:19 05/19/23 04:19 Labs: Abnormal Lab Results - Last 24 Hours (Table) 05/19/23 05/19/23 05/19/23 Range/Units 04:19 04:19 04:19 Hgb 10.1 L (12.0-15.0) d/dL Hct 32.5 L (37.2-46.3) % MCV 77.9 L (80.0-97.0) FL MCH 24.2 L (27.0-32.0) pg MCHC 31.1 L (32.0-37.0) d/dL RDW 19.1 H (11.5-14.5) % Lymphocytes # 0.88 L (0.90-5.00) X 10*3/uL BUN 6.0 L (9.0-27.0) mg/dL BUN/Creatinine Ratio 10.00 L (12.00-20.00) Ratio Hep C IgG Ab Reactive A (Non-Reactive) Microbiology - Last 24 Hours (Table) 05/18/23 05:53 Gram Stain - Preliminary Hand - Left 05/18/23 03:52 Blood Culture - Preliminary Blood 05/18/23 03:52 Blood Culture - Preliminary Blood Assessment and Plan (1) Hand abscess Current Visit: Yes Status: Acute Code(s): L02.519 - CUTANEOUS ABSCESS OF UNSPECIFIED HAND SNOMED Code(s): 8485383 (2) Chronic hepatitis Current Visit: Yes Status: Acute Code(s): K73.9 - CHRONIC HEPATITIS, UNSPECIFIED SNOMED Code(s): 96501450 Plan: 1patient with a left hand abscess and cellulitis likely from gram-positive skin codie questionable related to IV drugs the patient is complaining of related to a spider bite and likely from gram-positive skin codie such as MRSA 2possible surgical drainage tomorrow morning as per nursing staff. 3elevated liver enzymes with a positive hepatitis C antibody further work-up as an outpatient. 4we will continue the patient on vancomycin while waiting for the culture to finalize. Dictation was produced using [employer] dictation software. please excuse any grammatical, word or spelling errors.
--- NOTE | 2023-05-19 20:15 | P.PN ---
Subjective A pleasant 32 years old female with past medical history of asthma. Patient presents because of left hand pain and swelling stating that she has a s pider bit her about 2 days ago on admission patient is tachycardic Labs showed WBCs 9.8, hemoglobin 10.6. Trace of 60, INR, BMP and liver enzymes are unremarkable except for mildly elevated AST and ALT. Hand x-ray: No acute fracture or dislocation Patient already started on IV vancomycin. Orthopedic team evaluated the patient and plan for I and D tomorrow Preoperative test patient declined, risks benefits are explained She denies smoking alcohol or illicit drugs. She states she used to use illicit drugs last time was less 05/19/2023 Patient left hand cellulitis and swelling and tenderness improving, she can use it partially to hold for can eat as patient is left-handed. She still have some limitation of movement and patient understands that might be some functional deficit however PT/OT would be consulted for further management. Also patient reports significant improvement in her left hand swelling and tenderness, She remains on IV vancomycin Orthopedic team are planning for surgical drainage and debridement this coming week. Also patient hepatitis C antibody came back positive, liver enzymes mildly elevated. Patient with no abdominal pain or right upper quadrant tenderness. Patient was not aware she has hepatitis C and she was informed she has this liver infection and she was instructed to follow up with Dr. Jo from GI service as an outpatient {contact information Dr. Jo as provided discharge instructions} Patient looks better controlled today Active Medications Generic Name Dose Route Start Last Admin Trade Name Freq PRN Reason Stop Dose Admin Acetaminophen 650 mg 05/18/23 06:07 05/19/23 20:04 Acetaminophen Tab 325 Mg Tab PO 650 mg Q6HR PRN Administration Mild Pain or Fever > 100.5 Famotidine 20 mg 05/18/23 21:00 05/19/23 20:05 Famotidine 20 Mg/2 Ml Vial IV 20 mg Q12HR SUMAN Administration Heparin Sodium (Porcine) 5,000 unit 05/18/23 21:00 05/19/23 20:05 Heparin Sodium,Porcine 5,000 Unit/Ml 1 Ml Vial SQ 5,000 unit Q12HR SUMAN Administration Vancomycin HCl 1,000 mg/ 250 mls @ 125 mls/hr 05/18/23 13:00 05/19/23 13:04 Sodium Chloride IVPB 125 mls/hr Q8H SUMAN Administration Morphine Sulfate 4 mg 05/18/23 06:07 05/19/23 18:07 Morphine Sulfate 4 Mg/Ml Syringe IV 4 mg Q4HR PRN Administration Severe Pain (Scale 7 to 10) Naloxone HCl 0.2 mg 05/18/23 06:07 Naloxone 0.4 Mg/Ml 1 Ml Vial IV Q2M PRN Opioid Reversal Ondansetron HCl 4 mg 05/18/23 10:24 Ondansetron 4 Mg/2 Ml Vial IVP Q3HR PRN Nausea And Vomiting Objective - Vital Signs Vital signs: Vital Signs Temp 98.1 F 05/19/23 13:50 Pulse 65 05/19/23 13:50 Resp 15 05/19/23 13:50 BP 92/43 05/19/23 13:50 Pulse Ox 99 05/19/23 13:50 FiO2 Intake & Output 05/19/23 05/19/23 05/20/23 06:59 18:59 06:59 Other: Voiding Method Toilet Toilet Toilet # Voids 2 3 - Exam GENERAL: The patient is alert and oriented x3, not in any acute distress. Well developed, well nourished. HEENT: Pupils are round and equally reacting to light. EOMI. No scleral icterus. No conjunctival pallor. Normocephalic, atraumatic. No pharyngeal erythema. No thyromegaly. CARDIOVASCULAR: S1 and S2 present. No murmurs, rubs, or gallops. PULMONARY: Chest is clear to auscultation, no wheezing , no crackles. ABDOMEN: Soft, nontender, nondistended, normoactive bowel sounds. No palpable organomegaly. MUSCULOSKELETAL: No joint swelling or deformity. -EXTREMITIES: No cyanosis, clubbing, or pedal edema. Left hand swelling and tenderness and erythema , improving slightly NEUROLOGICAL: Gross neurological examination did not reveal any focal deficits. SKIN: No rashes. no petechiae. - Labs CBC & Chem 7: 05/19/23 04:19 05/19/23 04:19 Labs: Abnormal Lab Results - Last 24 Hours (Table) 05/19/23 05/19/23 05/19/23 Range/Units 04:19 04:19 04:19 Hgb 10.1 L (12.0-15.0) d/dL Hct 32.5 L (37.2-46.3) % MCV 77.9 L (80.0-97.0) FL MCH 24.2 L (27.0-32.0) pg MCHC 31.1 L (32.0-37.0) d/dL RDW 19.1 H (11.5-14.5) % Lymphocytes # 0.88 L (0.90-5.00) X 10*3/uL BUN 6.0 L (9.0-27.0) mg/dL BUN/Creatinine Ratio 10.00 L (12.00-20.00) Ratio Hep C IgG Ab Reactive A (Non-Reactive) Microbiology - Last 24 Hours (Table) 05/18/23 05:53 Gram Stain - Preliminary Hand - Left 05/18/23 03:52 Blood Culture - Preliminary Blood 05/18/23 03:52 Blood Culture - Preliminary Blood Assessment and Plan Assessment: Left hand cellulitis, secondary to spider bite as per patient hepatitis C infection History of substance abuse, quit for the last few months as per patient History of asthma Plan: continue with IV vancomycin Monitor creatinine and vitals Orthopedic and infectious disease consult patient may benefit from I&D by orthopedic team early next week Patient is made aware of her diagnosis of biopsy with recommendation to follow up with Dr. Jo as an outpatient and she agrees Labs and medication were reviewed.. Continue same treatment. Continue with symptomatic treatment. Resume home medication. Monitor labs and vitals. DVT and GI prophylaxis. Further recommendations as per clinical course of the patient DVT prophylaxis: Subcutaneous heparin GI Prophylaxis: Pepcid PT/OT: Pending Prognosis is guarded
[2023-05-19] MEDS: ONDANSETRON 4 MG/2 ML VIAL IVP PRN (22:22)
[2023-05-20] MEDS: MORPHINE SULFATE 4 MG/ML SYRINGE IV PRN ×7 (00:05→19:51)
[2023-05-20] MEDS: VANCOMYCIN 1,000 MG in SODIUM CHLORIDE 0.9% 250 ML IVPB SCH ×3 (05:27→19:52)
[2023-05-20 07:08] LABS: African American GFR (CKD) >90 (>60 ml/min/1.73 sqM); Non-African American GFR(CKD) >90 (>60 ml/min/1.73 sqM)
[2023-05-20] MEDS: FAMOTIDINE 20 MG/2 ML VIAL IV SCH ×2 (08:40→19:51)
[2023-05-20] MEDS: HEPARIN SODIUM,PORCINE 5,000 UNIT/ML 1 ML VIAL SQ SCH ×2 (08:40→19:51)
[2023-05-20] MEDS: ONDANSETRON 4 MG/2 ML VIAL IVP PRN (08:40)
--- NOTE | 2023-05-20 08:47 | P.PN ---
Subjective Progress Note Date: 05/20/23 Principal diagnosis: Left Hand cellulitis (spider bite) Patient seen and examined this morning. Patient is resting comfortably in bed. Left hand is elevated on a pillow. Current dressing is clean dry and intact. Patient continues to report that her left hand is very tender and painful. Patient denies any numbness or tingling. Patient is to continue with Hibiclens soaks for 20 minutes 3 times a day. I&D of the left hand is scheduled for tomorrow 05/21/2023. Patient is to be nothing by mouth at midnight. No questions or concerns at this time. Objective - Vital Signs Vital signs: Vital Signs Temp 98.2 F 05/20/23 01:32 Pulse 102 H 05/20/23 01:32 Resp 20 05/20/23 01:32 BP 95/53 05/20/23 01:32 Pulse Ox 98 05/20/23 01:32 FiO2 Intake & Output 05/19/23 05/20/23 05/20/23 18:59 06:59 18:59 Other: Voiding Method Toilet Toilet # Voids 3 2 - Exam Inspection: Open wound to the dorsal region of the left hand. Dressing is currently clean dry and intact Sensation: Sensation is equal, symmetric, bilaterally intact throughout the upper and lower extremities Palpation: Extreme tenderness to palpation of the left hand area Range of motion: Patient does have full range of motion of the right upper and bilateral lower extremities on exam. Patient has limited range of motion of the left hand and fingers due to infectious process and pain. Motor: 5/5 in all major motor groups in the right upper and bilateral lower extremities. Special tests: Negative Homans bilaterally. Negative Jocelynn bilaterally. Negative clonus bilaterally. Neurovascular: Radial pulse intact, 2+ bilaterally. Cap refill under 3 seconds in digits upper extremities. - Labs CBC & Chem 7: 05/19/23 04:19 05/20/23 06:19 Labs: Abnormal Lab Results - Last 24 Hours (Table) 05/19/23 05/19/23 05/19/23 Range/Units 04:19 04:19 04:19 Hgb 10.1 L (12.0-15.0) d/dL Hct 32.5 L (37.2-46.3) % MCV 77.9 L (80.0-97.0) FL MCH 24.2 L (27.0-32.0) pg MCHC 31.1 L (32.0-37.0) d/dL RDW 19.1 H (11.5-14.5) % Lymphocytes # 0.88 L (0.90-5.00) X 10*3/uL BUN 6.0 L (9.0-27.0) mg/dL Creatinine (0.52-1.04) mg/dL BUN/Creatinine Ratio 10.00 L (12.00-20.00) Ratio Hep C IgG Ab Reactive A (Non-Reactive) 05/20/23 Range/Units 06:19 Hgb (12.0-15.0) d/dL Hct (37.2-46.3) % MCV (80.0-97.0) FL MCH (27.0-32.0) pg MCHC (32.0-37.0) d/dL RDW (11.5-14.5) % Lymphocytes # (0.90-5.00) X 10*3/uL BUN (9.0-27.0) mg/dL Creatinine 0.41 L (0.52-1.04) mg/dL BUN/Creatinine Ratio (12.00-20.00) Ratio Hep C IgG Ab (Non-Reactive) Microbiology - Last 24 Hours (Table) 05/18/23 05:53 Gram Stain - Preliminary Hand - Left 05/18/23 03:52 Blood Culture - Preliminary Blood 05/18/23 03:52 Blood Culture - Preliminary Blood Assessment and Plan Assessment: Left hand cellulitis (spider bite) Left hand pain Plan: At this time we recommend an incision and drainage of left hand wound. We will book procedure for 05/21/23 and also obtain deep wound cultures. Appreciate medical management Nothing by mouth at midnight Continue with IV antibiotics. Continue to provide Hibiclens soaks for 20 min TID. Pain management - continue with IV and oral pain medications. Ice and elevate left hand. DVT prophylaxis - mechanical PT/OT - weightbearing as tolerated Appreciate consult
[2023-05-21] MEDS: MORPHINE SULFATE 4 MG/ML SYRINGE IV PRN ×6 (00:05→21:55)
[2023-05-21] MEDS: ACETAMINOPHEN TAB 325 MG TAB PO PRN ×2 (03:10→20:11)
[2023-05-21] MEDS: VANCOMYCIN 1,000 MG in SODIUM CHLORIDE 0.9% 250 ML IVPB SCH ×3 (05:19→20:12)
[2023-05-21] MEDS: HEPARIN SODIUM,PORCINE 5,000 UNIT/ML 1 ML VIAL SQ SCH ×2 (09:41→20:07)
[2023-05-21] MEDS: FAMOTIDINE 20 MG/2 ML VIAL IV SCH ×2 (09:45→20:12)
[2023-05-21 11:53] LABS: African American GFR (CKD) >90 (>60 ml/min/1.73 sqM); Non-African American GFR(CKD) >90 (>60 ml/min/1.73 sqM)
[2023-05-21] MEDS ORDERED: VANCOMYCIN TROUGH DUE 1 EACH MISC MISCELLANE ONE (12:00)
--- NOTE | 2023-05-21 12:08 | P.PN ---
Subjective Progress Note Date: 05/20/23 Principal diagnosis: Left hand abscess and Ch hepatitis C Patient is a 32-year-old female with a past medical history significant for asthma previous history of MRSA skin and soft tissue infection, presenting to the ER for evaluation of left hand pain swelling and redness patient did have bedside drainage subsequently admitted to hospital for IV antibiotic therapy. On today's evaluation that is 05/20/2023, the patient is afebrile today, the patient is breathing comfortably on room air without the need for supplemental oxygen and no shortness of breath, the patient denies having any chest pain or cough, patient denies nausea/vomiting /diarrhea and no abdominal pain, pain to the left and has decreased in intensity Patient did have a white count of 5.91 as of yesterday, creatinine 0.41, hepatitis C antibody positive cultures are so far negative. Objective - Vital Signs Vital signs: Vital Signs Temp 97.9 F 05/20/23 07:07 Pulse 74 05/20/23 07:07 Resp 18 05/20/23 07:07 BP 93/61 05/20/23 07:07 Pulse Ox 99 05/20/23 07:07 FiO2 Intake & Output 05/19/23 05/20/23 05/20/23 18:59 06:59 18:59 Other: Voiding Method Toilet Toilet # Voids 3 2 1 - Exam GENERAL DESCRIPTION: Elderly male lying in bed in no distress RESPIRATORY SYSTEM: Unlabored breathing , decreased breath sounds at bases HEART: S1 S2 regular rate and rhythm ,no loud murmurs ABDOMEN: Soft , no tenderness EXTREMITIES: No edema feet - Labs CBC & Chem 7: 05/19/23 04:19 05/21/23 11:15 Labs: Abnormal Lab Results - Last 24 Hours (Table) 05/20/23 Range/Units 06:19 Creatinine 0.41 L (0.52-1.04) mg/dL Microbiology - Last 24 Hours (Table) 05/18/23 05:53 Gram Stain - Final Hand - Left Wound Culture - Final 05/18/23 03:52 Blood Culture - Preliminary Blood 05/18/23 03:52 Blood Culture - Preliminary Blood Assessment and Plan (1) Hand abscess Current Visit: Yes Status: Acute Code(s): L02.519 - CUTANEOUS ABSCESS OF UNSPECIFIED HAND SNOMED Code(s): 9875982 (2) Chronic hepatitis Current Visit: Yes Status: Acute Code(s): K73.9 - CHRONIC HEPATITIS, UNSPECIFIED SNOMED Code(s): 21337191 Plan: 1patient with a left hand abscess and cellulitis likely from gram-positive skin codie questionable related to IV drugs the patient is complaining of related to a spider bite and likely from gram-positive skin codie such as MRSA 2possible surgical drainage tomorrow morning as per nursing staff. 3elevated liver enzymes with a positive hepatitis C antibody further work-up as an outpatient. 4patient will continue the patient on vancomycin will benefit from surgical drainage and deep culture Dictation was produced using [employer] dictation software. please excuse any grammatical, word or spelling errors. Time with Patient: Less than 30
--- NOTE | 2023-05-21 12:10 | P.PN ---
Subjective Progress Note Date: 05/21/23 Principal diagnosis: Left hand abscess and Ch hepatitis C Patient is a 32-year-old female with a past medical history significant for asthma previous history of MRSA skin and soft tissue infection, presenting to the ER for evaluation of left hand pain swelling and redness patient did have bedside drainage subsequently admitted to hospital for IV antibiotic therapy. On today's evaluation that is 05/21/2023, the patient did spike a fever of 103F this morning, the patient is breathing comfortably on room air, the patient denies chest pain, shortness of breath or cough, patient denies abdominal pain, no nausea/vomiting and no diarrhea , patient still complaining of pain pain to the left hand Patient did have a white count of 5.91 as of 05/19/2023, creatinine is 0.60, hepatitis C antibody positive cultures are so far negative. Objective - Vital Signs Vital signs: Vital Signs Temp 98.3 F 05/21/23 06:43 Pulse 95 05/21/23 06:43 Resp 14 05/21/23 06:43 BP 91/47 05/21/23 06:43 Pulse Ox 98 05/21/23 06:43 FiO2 Intake & Output 05/20/23 05/21/23 05/21/23 18:59 06:59 18:59 Other: Voiding Method Toilet # Voids 1 0 # Bowel Movements 1 - Exam GENERAL DESCRIPTION: Elderly male lying in bed in no distress RESPIRATORY SYSTEM: Unlabored breathing , decreased breath sounds at bases HEART: S1 S2 regular rate and rhythm ,no loud murmurs ABDOMEN: Soft , no tenderness EXTREMITIES: No edema feet - Labs CBC & Chem 7: 05/19/23 04:19 05/21/23 11:15 Labs: Microbiology - Last 24 Hours (Table) 05/18/23 03:52 Blood Culture - Preliminary Blood 05/18/23 03:52 Blood Culture - Preliminary Blood 05/18/23 05:53 Gram Stain - Final Hand - Left Wound Culture - Final Assessment and Plan (1) Hand abscess Current Visit: Yes Status: Acute Code(s): L02.519 - CUTANEOUS ABSCESS OF UNSPECIFIED HAND SNOMED Code(s): 6653549 (2) Chronic hepatitis Current Visit: Yes Status: Acute Code(s): K73.9 - CHRONIC HEPATITIS, UNSPECIFIED SNOMED Code(s): 23629613 Plan: 1patient with a left hand abscess and cellulitis likely from gram-positive skin codie questionable related to IV drugs the patient is complaining of related to a spider bite and likely from gram-positive skin codie such as MRSA 2possible surgical drainage tomorrow morning as per nursing staff. 3elevated liver enzymes with a positive hepatitis C antibody further work-up as an outpatient. 4patient with a new fever we will repeat her blood cultures hopefully she will have drainage of the abscesses this afternoon at which time culture should be obtained and will continue with the vancomycin Dictation was produced using [employer] dictation software. please excuse any grammatical, word or spelling errors. Time with Patient: Less than 30
--- NOTE | 2023-05-21 12:29 | CDI ---
Documentation Clarification Form Date: 05/21/2023 11:58:43 AM From: Emely Mendenhall RN, CCDS Email: [email or web address] Admit Date: 05/18/2023 06:07:00 AM Patient Name: Lenore Rosales Visit Number: [id number] Discharge Date: ATTENTION: The Clinical Documentation Specialists (CDI) and [facility] Coding Staff appreciate your assistance in clarifying documentation. Please respond to the clarification below the line at the bottom and electronically sign. The CDI & [facility] Coding staff will review the response and follow-up if needed. Please note: Queries are made part of the Legal Health Record. If you have any questions, please contact the author of this message via ITS. Dr. Esau Correa Sheet The patient has cellulitis from a spider bite, fever and tachycardia. Based on this information and the findings below, is there an additional diagnosis that is clinically appropriate for this patient? History/Risk Factors: bit by a spider per patient. Presented with left hand pain and swelling. Admitted with cellulitis. Clinical Indicators: ED: "Cellulitis, spider bite, abscess, soft tissue infection, sepsis." 05/19 Ortho: "Serosanguinous, purulent drainage noted on dressing of left hand." 05/18 left hand xray: There is soft tissue swelling overlying the dorsum of the left hand. 05/18-05/19 WBC: 9.8-5.91 Vital signs: 05/18 Temp 100.2, 05/21 Temp 103.0; 05/18 HR 130-104-101; 05/21 HR 124; 05/18 RR 24 Treatment: 05/21 ID Consult: "patient with a left hand abscess and cellulitis likely from gram-positive skin codie questionable related to IV drugs. The patient is complaining of related to a spider bite and likely from gram-positive skin codie such as MRSA." Antibiotics: IV Vancomycin 1000 mg x1 on 05/18; IV Vancomycin 1000 mg Q8H 05/18- current IV Bolus: 1L 0.9 NS bolus on 05/18 Is there an additional diagnosis that is clinically appropriate for this patient? [ ] Sepsis, present on admission [ ] Other, please specify [ ] Unable to determine SIRS Criteria: 2 or more of the following may indicate SIRS Temperature < 96.8F (36C) or > 101.0F (38.3C) Heart Rate > 90 bpm Respiratory Rate > 20 breaths/min or PaCO2 < 32 mmHg White Blood Cell Count > 12,000 or < 4,000 cells/mm3 or > 10% bands no sepsis MTDD
[2023-05-21] MEDS ORDERED: IV FLUID CONTINUATION 1,000 ML IV ONE (13:05)
[2023-05-21] MEDS ORDERED: ONDANSETRON 4 MG/2 ML VIAL ONE (13:09)
[2023-05-21] MEDS ORDERED: LIDOCAINE 1% INJ 10MG/ML (20 ML MDV) ONE (13:27)
[2023-05-21] MEDS ORDERED: fentaNYL (PF) 50 MCG/ML 2 ML AMP ONE (13:27)
[2023-05-21] MEDS ORDERED: PROPOFOL 10 MG/ML 20 ML VIAL IV ONE (13:27)
[2023-05-21] MEDS ORDERED: MIDAZOLAM 2 MG/2 ML VIAL ONE (13:27)
[2023-05-21] MEDS ORDERED: ceFAZolin 1,000 MG in SODIUM CHLORIDE 0.9% 1,000 ML IRRIGATION ONE (13:32)
[2023-05-21] MEDS ORDERED: BUPIVACAINE (PF) 0.5% 30 ML VIAL SQ ONE (13:58)
[2023-05-21] MEDS ORDERED: SENNOSIDES-DOCUSATE SODIUM 1 EACH TAB PO PRN (14:11)
[2023-05-21] MEDS ORDERED: ONDANSETRON 4 MG/2 ML VIAL IVP ONE (14:36)
[2023-05-21] MEDS ORDERED: HYDROmorphone 0.5 MG/0.5 ML SYRINGE IVP ONE (14:43)
[2023-05-21 16:54] LABS: Anisocytosis Slight; HCT 32.5 % (34.0-46.0); HGB 10.1 gm/dL (11.4-16.0); Hypochromasia Marked; MCH 24.7 pg (25.0-35.0); MCV 79.7 fL (80.0-100.0); Mean Platelet Volume 8.1; Microcytosis Slight; RBC 4.07 m/uL (3.80-5.40); RDW 18.1 % (11.5-15.5); WBC 2.6 k/uL (3.8-10.6)
[2023-05-21 17:08] LABS: Platelet Count 147 k/uL (150-450)
[2023-05-21 17:39] LABS: Eosinophils # (M) 0.08 k/uL (0-0.7); Lymphocytes # (M) 1.12 k/uL (1.0-4.8); Monocytes # (M) 0.21 k/uL (0-1.0); Neutrophils % (M) 46 %; Nucleated Red Blood Cells 0 /100 WBC (0-0); Total Cells Counted 100
[2023-05-21] MEDS: hydrOXYzine pamoate 25 MG CAP PO PRN (22:25)
[2023-05-21] MEDS: ONDANSETRON 4 MG/2 ML VIAL IVP PRN (22:28)
--- NOTE | 2023-05-21 23:24 | P.PN ---
Subjective Progress Note Date: 05/21/23 Patient is evaluated today resting in bed. Pending I and D of the left hand spider bite. Patient was noted to be positive for hepatitis C by IgG; IgM not checked patient states she knows she currently has hepatitis C and has not been treated for it yet but would like too. Will give the patient information to f/u with Dr. Vikki Jo on discharge. Patient continues on IV vancomycin. ID is following. Wound culture is showing anaerobic gram negative bacilli. Review of Systems Constitutional: Denied any fatigue denied any fever. Cardio vascular: denied any chest pain, palpitations Gastrointestinal: denied any nausea, vomiting, diarrhea Pulmonary: Denied any shortness of breath cough Neurologic denied any new focal deficits All inpatient medications were reviewed and appropriate changes in these medic ations as dictated in the interval history and assessment and plan. PHYSICAL EXAMINATION: GENERAL: The patient is alert and oriented x3, not in any acute distress. Well developed, well nourished. HEENT: Pupils are round and equally reacting to light. EOMI. No scleral icterus. No conjunctival pallor. Normocephalic, atraumatic. No pharyngeal erythema. No thyromegaly. CARDIOVASCULAR: S1 and S2 present. No murmurs, rubs, or gallops. PULMONARY: Chest is clear to auscultation, no wheezing or crackles. ABDOMEN: Soft, nontender, nondistended, normoactive bowel sounds. No palpable organomegaly. MUSCULOSKELETAL: No joint swelling or deformity. EXTREMITIES: No cyanosis, clubbing, or pedal edema. NEUROLOGICAL: Gross neurological examination did not reveal any focal deficits. SKIN: No rashes. Assessment Left hand cellulitis, secondary to spider bite as per patient hepatitis C infection History of substance abuse, quit for the last few months as per patient History of asthma GI prophylaxis DVT prophylaxis Full Code Plan Continue IV antibiotics pending final wound cultures Scheduled to go for I and D today of the left hand The impression and plan of care has been dictated by Breann Walsh Nurse Practitioner as directed. Dr. Ham MD I have performed a history and physical examination and medical decision making of this patient, discussed the same with the dictator, and agree with the dictators assessment and plan as written, documented as a scribe. Based on total visit time, I have performed more than 50% of this visit. Objective - Vital Signs Vital signs: Vital Signs Temp 98.3 F 10/17/23 06:43 Pulse 95 05/21/23 06:43 Resp 14 05/21/23 06:43 BP 91/47 05/21/23 06:43 Pulse Ox 98 05/21/23 06:43 FiO2 Intake & Output 05/20/23 05/21/23 05/21/23 18:59 06:59 18:59 Other: Voiding Method Toilet # Voids 1 0 # Bowel Movements 1 - Labs CBC & Chem 7: 05/21/23 16:20 05/21/23 11:15 Labs: Microbiology - Last 24 Hours (Table) 05/18/23 03:52 Blood Culture - Preliminary Blood 05/18/23 03:52 Blood Culture - Preliminary Blood 05/18/23 05:53 Gram Stain - Final Hand - Left Wound Culture - Final Assessment and Plan Time with Patient: Less than 30
[2023-05-21] MEDS ORDERED: HYDROcodone/APAP 5-325MG 1 EACH TAB PO PRN (23:35)
[2023-05-22] MEDS ORDERED: HYDROcodone/APAP 5-325MG 1 EACH TAB PO PRN (00:26)
[2023-05-22] MEDS: IBUPROFEN 400 MG TAB PO PRN (00:30)
[2023-05-22] MEDS: VANCOMYCIN 1,000 MG in SODIUM CHLORIDE 0.9% 250 ML IVPB SCH ×3 (04:55→20:16)
[2023-05-22] MEDS ORDERED: SODIUM CHLORIDE 0.9% 500 ML 500 ML IV ONE (05:05)
[2023-05-22] MEDS: MORPHINE SULFATE 4 MG/ML SYRINGE IV PRN ×4 (05:44→20:55)
[2023-05-22 07:56] LABS: African American GFR (CKD) >90 (>60 ml/min/1.73 sqM); Non-African American GFR(CKD) >90 (>60 ml/min/1.73 sqM)
--- NOTE | 2023-05-22 08:42 | P.OP ---
Date of Procedure: 05/21/23 Preoperative Diagnosis: 1. DORSAL ULAR HAND ULCERATION, POSSIBLE BITE INJURY 2. ABSCESS DORSAL HAND 3. COMPLEX MEDICAL AND SOCIAL PATIENT Postoperative Diagnosis: 1. DORSAL ULAR HAND ULCERATION, POSSIBLE BITE INJURY 2. ABSCESS DORSAL HAND 3. COMPLEX MEDICAL AND SOCIAL PATIENT Procedure(s) Performed: 1. IRRIGATION AND EXCISIONAL DEBRIDMENT OF THE DORSAL ULNAR LEFT HAND [id number] USING THE FOLLOWING: -SKIN KNIFE USED TO EXCISE SKIN AND NECROTIC SOFT TISSUE -CURETTE USED TO SCRAPE WOUND BED -RONGURE USED TO REMOVE NECROTIC ST 2. COMPLEX CLOSURE 5X5X3 LEFT HAND Implants: none Anesthesia: MAC Surgeon: Chris Cohn Gold Nib Grinder #1: Torin Sharp (RAHUL Cummings Was present and assisted with all aspects of the case from positioning to dressing placement) Estimated Blood Loss (ml): 10 IV fluids (ml): 100 Urine output (ml): 0 Pathology: other Condition: stable Disposition: PACU Indications for Procedure: Orthopedic Surgery Risk Review Lenore Rosales is a 32 you RHD female presenting for evaluation of sudden onset left hand pain, after presumed bite injury to her left hand over the d orsal ulnar aspect. It was my pleasure to have seen and examined Lenore Rosales. In our visit today we have had a chance to go over subjective complaints, physical examination findings and treatments including the natural course history without intervention and various interventional options. Her imaging demonstrates ST swelling over the dorsal hand. No fractures On physical exam, Lenore Rosales demonstrates pain with motion of left hand , which is NV intact at this time. I have explained to the patient that this fracture needs stabilization. Based on the patients imaging, physical exam, and the rapid progression and disabling nature of her symptoms, at this time I recommend surgery in the form or a: irrigation and debridment left hand I discussed the risk and benefits of this procedure at length with Lenore Rosales. Questions were invited and answered, and the patient wishes to proceed as outlined below. Currently, I am recommendin. Irrigation and debridment left hand 2. Review of surgical risks and benefits as well as an educational packet on the proposed surgical procedure. Risks: All surgical procedures come with inherent risks, including those related to positioning, anesthesia, intraoperative findings, and postoperative complications. It is important to understand that surgery does not come with any guarantee of a successful outcome as complications and adverse events are always possible. The patient was given a handout discussing the surgical procedure and risks associated with the intervention, both of which were discussed with the patient. These risks include but are not limited to the following: - Experiencing same, different or even worse symptoms compared to before surgery. - Requiring further surgery or other forms of treatment presently or at some time in the future . - On an extreme but fortunately relatively rare basis severe complication such as blindness, stroke, heart attack, temporary and/or permanent nerve injury, paralysis, coma, or may occur, sometimes without known explanation. - Surgical complications may include but are not limited to risk of infecti on, fluid accumulation in the surgical dissection site, including a seroma or hematoma, that requires additional surgery, wound drainage, bleeding, new numbness or weakness, vision changes/loss, spinal fluid leakage, non-healing and/or infected incision, headaches, difficulty or inability to swallow, hoarseness, hemopneumothorax, pneumothorax, injury to nerves, spinal cord, blood vessels, lymphatics or other vital organs (i.e., bowel injury, injury to the great vessels); heterotopic bone formation; complications related to the hardware such as screws, rods, including misplaced hardware, device failure, hardware fracture/breakage, or hardware loosening; retained surgical instrumentations or devices and the need for further surgery. - Medical risks of the planned surgery include but are not limited to generalized Infections to the whole body or local areas outside of the surgical site (sepsis), heart attack, bleeding, anaphylaxis, meningitis, seizure, epilepsy, hearing loss, burn yung, laceration of the head or other areas of the body, bruising, hypersensitivity of the skin, bladder over distension; allergic reaction; shoulder injury related to positioning; fat, blood and air clots to other areas of the body like heart, lungs, brain; failure of internal organs such as lungs, kidneys, liver and excessive bleeding. If blood transfusions are necessary, note that transfusions may cause intolerance reactions such as anaphylaxis or other complex reactions. Despite best efforts, the results of surgery might not heal in terms of bone, soft tissues such as skin, fascia, ligaments, and joints. [facility] has multiple operating rooms with single and overlapping rooms running daily. They currently function under the required guidelines as produced by the Senate Finance Committee with regards to the overlapping rooms and will continue to comply with changes to this policy as they occur. The requirements include and are complied with as follows: (1) the critical portions of the overlapping rooms will not occur at the same time, (2) the attending physician will be physically present during the critical portions of the procedure and immediately available during the entire case, and (3) a back-up attending is designated should the primary attending not be immediately available. The patient has had a chance to review all the listed information, has been given print outs detailing this information, and has had all his/her questions answered to their satisfaction. It was my pleasure to have seen and examined Lenore Rosales . In our visit today we have had a chance to go over my understanding of our patient's current condition, the natural course history without intervention and various interventional options. Questions were invited and answered, and the patient wishes to proceed as outlined above. I have seen and examined the patient for 25 minutes and we have spent more than 50% of the time in repeat and detailed counseling about the patient's condition, its natural course history with out and as much as can be predicted with surgery and re-review of various surgical treatment options. In conclusion,Lenore Rosales requested we proceed with the above suggested surgery and are willing to accept risks and limitations of the suggested surgery as nature of the disease process and our best attempts at treatment for the condition. Thank you again for allowing us to be part of your patient's care. Please don't hesitate to contact me if you have any further questions. Signed and authenticated by: Chris Martinez [facility] [address] [place] [id number] Description of Procedure: The patient was seen and examined in the preoperative area. All preoperative protocols were followed. Informed consent was obtained risks and benefits of the procedure were discussed at length. Risks including bleeding infection damage to the surrounding tissue and risk of reoperation were discussed with the patient. Risk of anesthesia up to and including was a discussed with the patient. These are outlined in the risk reviewed. They were willing to accept these risks and all of the risks of surgery. The patient was given a weight- based dose of antibiotics in the form of Vancomycin from the floor. The patient was seen and evaluated by the anesthesia team who deemed them fit for surgery. The site was marked, the patient was willing to proceed with the procedure. The patient was transferred to the operative suite by the Department of anesthesia. There were then drifted off to sleep by the department of anesthesia and MAC anesthesia was used. Once adequate anesthesia had been obtained the patient was carefully transferred to the operative bed. All bony prominences were padded accordingly. SCDs were placed on the nonoperative lower extremities. Arms were well padded. Left hand was exposed placed on an armboard. tourniquet was placed over the patient's left upper arm. Preoperative briefing was done with the operative team and everyone was ready for the procedure to start. The patients left hand and arm was then prepped and draped in the normal sterile fashion. Timeout was then performed and all parties in agreement with the procedure to be performed. on inspection there was a 3 cm x 3 cm ulcerated wound over the dorsal ulnar aspect of the patient's left hand that overlie essentially the small finger metacarpal and base of the metacarpal. It did on investigation tract down to bone in this area however there is no certainly bony involvement of infection. The necrotic tissue in this area which was removed necrotic skin was removed as well. Around this circular area there was another circular area of skin ulceration which appeared to be almost like a bite jason from a human mouth. Difficult to tell where this came from. The skin slough and this area was removed. The wound was then irrigated and debrided thoroughly with a skin soft tissue and bone and excised skin and soft tissue that was necrotic. It was copiously irrigated with normal sterile saline as well as Betadine. Once it was irrigated and the wound edges were freshened the wound was then loosely closed with nylon stitch and Silastic drains placed. The wound was then cleaned and dressed sterilely with Adaptic 4 x 4's ABDs and web roll this was then overwrapped with an Enrique wrap. The patient was then transferred back to their hospital bed. There were awakened by department of anesthesia having tolerated the procedure very well with no complications. The patient was then transported to the postoperative care unit in stable condition.
[2023-05-22] MEDS: HEPARIN SODIUM,PORCINE 5,000 UNIT/ML 1 ML VIAL SQ SCH ×2 (09:42→19:57)
[2023-05-22] MEDS: FAMOTIDINE 20 MG/2 ML VIAL IV SCH ×2 (09:48→20:15)
--- NOTE | 2023-05-22 12:32 | P.PN ---
Subjective Progress Note Date: 05/22/23 Principal diagnosis: 1. DORSAL ULAR HAND ULCERATION, POSSIBLE BITE INJURY 2. ABSCESS DORSAL HAND Patient was seen at bedside this morning lying semirecumbent position with Enrique bandages present over left hand/wrist. Patient says she is able move her fingers and fully flex and extend her elbow. Patient says pain is minimal at this time in the left hand. Patient says she has been up walking in the room and has urinated since surgery yesterday. Patient denies any other issues at this time. Objective - Vital Signs Vital signs: Vital Signs Temp 97.4 F L 05/22/23 07:29 Pulse 51 L 05/22/23 07:29 Resp 14 05/22/23 07:29 BP 84/41 05/22/23 10:30 Pulse Ox 100 05/22/23 07:29 FiO2 Intake & Output 05/21/23 05/22/23 05/22/23 18:59 06:59 18:59 Intake Total 1850 Output Total 10 1000 Balance 1840 -1000 Intake: IV 1850 Output: Urine 1000 Estimated Blood Loss 10 Other: Voiding Method Toilet # Voids 3 - Exam Enrique bandage present over the left hand. Enrique bandage will be kept in place at t his time to help with swelling. Plan for Enrique bandage and dressing to be removed late this afternoon and plan for Hibiclens soaks to begin. Sensation is equal, symmetric, but intact throughout the upper and lower extremities. Patient does have full range of motion throughout left upper extremity and elbow flexion extension and shoulder forward elevation, extension external/internal rotation. There is limited range of motion in the left wrist secondary to referred pain in the left hand. Patient is able to move digits in left hand with minimal pain. 4+/5 in resisted left elbow flexion/extension and left shoulder forward elevation. 4-/5 in resisted left wrist flexion and extension. Cap refill under 3 seconds in digits of left upper extremity. Radial pulse intact on the right upper extremity. Negative Homans bilaterally. - Labs CBC & Chem 7: 05/21/23 16:20 05/22/23 07:13 Labs: Abnormal Lab Results - Last 24 Hours (Table) 05/21/23 05/21/23 Range/Units 16:20 16:20 WBC 2.6 L (3.8-10.6) k/uL Hgb 10.1 L (11.4-16.0) gm/dL Hct 32.5 L (34.0-46.0) % MCV 79.7 L (80.0-100.0) fL MCH 24.7 L (25.0-35.0) pg RDW 18.1 H (11.5-15.5) % Plt Count 147 L D (150-450) k/uL Neutrophils # (Manual) 1.20 L (1.3-7.7) k/uL C-Reactive Protein 5.9 H (<1.0) mg/dL Microbiology - Last 24 Hours (Table) 05/18/23 05:53 Anaerobic Culture - Final Hand - Left Anaerobic Gm Negative Bacilli 05/18/23 03:52 Blood Culture - Preliminary Blood 05/18/23 03:52 Blood Culture - Preliminary Blood Assessment and Plan Assessment: 1. DORSAL ULAR HAND ULCERATION, POSSIBLE BITE INJURY 2. ABSCESS DORSAL HAND Postop day 1 status post - IRRIGATION AND EXCISIONAL DEBRIDMENT OF THE DORSAL ULNAR LEFT HAND [id number] Plan: 1. DORSAL ULAR HAND ULCERATION, POSSIBLE BITE INJURY; ABSCESS DORSAL HAND - surgery performed yesterday, 05/21/2023 - IRRIGATION AND EXCISIONAL DE BRIDMENT OF THE DORSAL ULNAR LEFT HAND [id number]. patient stable at bedside this morning with Enrique bandage present over left hand/wrist. We'll maintain a stressing at this time and plan for dressing be taken down late this afternoon and begin Hibiclens soaks 15 minutes at a time for 3 times a day. Dressing may be changed and new bandage maybe place with Kerlix 4 x 4 and Adaptic. Patient may perform gentle range of motion exercises. Weightbearing as tolerated. Cultures were taken yesterday and surgery are pending at this time. Appreciate medical and ID management. We'll continue to follow patient during her stay in hospital. 2. Appreciate medical and ID management 3. Pain management - [place]; Tylenol 4. DVT prophylaxis - heparin 5. GI prophylaxis - Pepcid; senna 6. PT/OT - patient may perform gentle range of motion exercises of left hand 7. Encourage incentive spirometer use Time with Patient: Less than 30
--- NOTE | 2023-05-22 15:21 | P.PN ---
Subjective Progress Note Date: 05/22/23 Patient is evaluated today resting in bed. Pending I and D of the left hand spider bite. Patient was noted to be positive for hepatitis C by IgG; IgM not checked patient states she knows she currently has hepatitis C and has not been treated for it yet but would like too. Will give the patient information to f/u with Dr. Vikki Jo on discharge. Patient continues on IV vancomycin. ID is following. Wound culture is showing anaerobic gram negative bacilli. 05/22/2023 Patient evaluated today resting in bed status post I&D of the left hand wound today with orthopedics. Remains on IV antibiotics. Flagyl has been added as well as IV cefepime. White count down to 2.6. Renal function stable. Blood pressure on the lower side patient states that she does run low usually. Required fluid bolus overnight. Maintenance fluids will be added. Review of Systems Constitutional: Denied any fatigue denied any fever. Cardio vascular: denied any chest pain, palpitations Gastrointestinal: denied any nausea, vomiting, diarrhea Pulmonary: Denied any shortness of breath cough Neurologic denied any new focal deficits All inpatient medications were reviewed and appropriate changes in these medications as dictated in the interval history and assessment and plan. PHYSICAL EXAMINATION: GENERAL: The patient is alert and oriented x3, not in any acute distress. Well developed, well nourished. HEENT: Pupils are round and equally reacting to light. EOMI. No scleral icterus. No conjunctival pallor. Normocephalic, atraumatic. No pharyngeal erythema. No thyromegaly. CARDIOVASCULAR: S1 and S2 present. No murmurs, rubs, or gallops. PULMONARY: Chest is clear to auscultation, no wheezing or crackles. ABDOMEN: Soft, nontender, nondistended, normoactive bowel sounds. No palpable organomegaly. MUSCULOSKELETAL: No joint swelling or deformity. EXTREMITIES: No cyanosis, clubbing, or pedal edema. NEUROLOGICAL: Gross neurological examination did not reveal any focal deficits. SKIN: No rashes. Assessment Left hand cellulitis, secondary to spider bite as per patient s/p I and D. hepatitis C infection Hypotension likely medication affect from pain medications. History of substance abuse, quit for the last few months as per patient History of asthma GI prophylaxis DVT prophylaxis Full Code Plan Continue IV antibiotics pending final wound cultures on combination of flagyl, cefepime and vancomycin. Started normal saline at 75 mls/hr and follow up labs in AM. The impression and plan of care has been dictated by Breann Walsh, Nurse Practitioner as directed. Dr. Ham MD I have performed a history and physical examination and medical decision making of this patient, discussed the same with the dictator, and agree with the dictators assessment and plan as written, documented as a scribe. Based on total visit time, I have performed more than 50% of this visit. Objective - Vital Signs Vital signs: Vital Signs Temp 98.4 F 05/22/23 12:10 Pulse 57 L 05/22/23 12:10 Resp 15 05/22/23 12:10 BP 94/55 05/22/23 12:10 Pulse Ox 99 05/22/23 12:10 FiO2 Intake & Output 05/21/23 05/22/23 05/22/23 18:59 06:59 18:59 Intake Total 1850 Output Total 10 1000 Balance 1840 -1000 Intake: IV 1850 Output: Urine 1000 Estimated Blood Loss 10 Other: Voiding Method Toilet # Voids 3 - Labs CBC & Chem 7: 05/21/23 16:20 05/22/23 07:13 Labs: Abnormal Lab Results - Last 24 Hours (Table) 05/21/23 05/21/23 Range/Units 16:20 16:20 WBC 2.6 L (3.8-10.6) k/uL Hgb 10.1 L (11.4-16.0) gm/dL Hct 32.5 L (34.0-46.0) % MCV 79.7 L (80.0-100.0) fL MCH 24.7 L (25.0-35.0) pg RDW 18.1 H (11.5-15.5) % Plt Count 147 L D (150-450) k/uL Neutrophils # (Manual) 1.20 L (1.3-7.7) k/uL C-Reactive Protein 5.9 H (<1.0) mg/dL Microbiology - Last 24 Hours (Table) 05/18/23 05:53 Anaerobic Culture - Final Hand - Left Anaerobic Gm Negative Bacilli 05/18/23 03:52 Blood Culture - Preliminary Blood 05/18/23 03:52 Blood Culture - Preliminary Blood Assessment and Plan Time with Patient: Less than 30
[2023-05-22] MEDS: SODIUM CHLORIDE 0.9% 1,000 ML IV SCH (16:27)
[2023-05-22] MEDS: CEFEPIME 2 GM in SODIUM CHLORIDE 0.9% 100 ML IVPB SCH (16:27)
[2023-05-22] MEDS: metroNIDAZOLE 500 MG TAB PO SCH ×2 (16:28→20:56)
[2023-05-22] MEDS: ONDANSETRON 4 MG/2 ML VIAL IVP PRN (16:51)
[2023-05-22] MEDS: ACETAMINOPHEN TAB 325 MG TAB PO PRN (20:15)
[2023-05-23] MEDS: SODIUM CHLORIDE 0.9% 1,000 ML IV SCH ×2 (06:02→12:57)
[2023-05-23] MEDS: CEFEPIME 2 GM in SODIUM CHLORIDE 0.9% 100 ML IVPB SCH ×4 (06:02→23:34)
[2023-05-23] MEDS: VANCOMYCIN 1,000 MG in SODIUM CHLORIDE 0.9% 250 ML IVPB SCH ×3 (06:02→20:46)
[2023-05-23 06:48] LABS: Anisocytosis Slight; Basophils % (A) 1 %; Eosinophils % (A) 0 %; HCT 31.4 % (34.0-46.0); Hypochromasia Moderate; Lymphocytes # (A) 2.8 k/uL (1.0-4.8); Lymphocytes % (A) 43 %; MCH 24.7 pg (25.0-35.0); MCHC 31.7 g/dL (31.0-37.0); MCV 77.8 fL (80.0-100.0); Mean Platelet Volume 8.5; Microcytosis Slight; Monocytes # (A) 0.2 k/uL (0-1.0); Monocytes % (A) 4 %; Neutrophils # (A) 3.1 k/uL (1.3-7.7); Neutrophils % (A) 48 %; Platelet Count 108 k/uL (150-450); RBC 4.03 m/uL (3.80-5.40); RDW 18.6 % (11.5-15.5); WBC 6.4 k/uL (3.8-10.6)
[2023-05-23] MEDS: FAMOTIDINE 20 MG/2 ML VIAL IV SCH ×2 (08:21→20:46)
[2023-05-23] MEDS: metroNIDAZOLE 500 MG TAB PO SCH ×3 (08:21→20:46)
[2023-05-23] MEDS: MORPHINE SULFATE 4 MG/ML SYRINGE IV PRN ×3 (08:21→20:46)
[2023-05-23] MEDS: HEPARIN SODIUM,PORCINE 5,000 UNIT/ML 1 ML VIAL SQ SCH ×2 (08:22→20:46)
[2023-05-23 08:38] VITALS: BMI 20.9
[2023-05-23 09:12] LABS: Magnesium 1.8 mg/dL (1.5-2.4)
[2023-05-23 09:34] LABS: BUN/Creat Ratio 8.62 Ratio (12.00-20.00); Blood Urea Nitrogen 6.9 mg/dL (9.0-27.0); Calcium 8.2 mg/dL (8.7-10.3); Carbon Dioxide 22.2 mmol/L (21.6-31.8); Chloride 107 mmol/L (96-109); Glucose 104 mg/dL (70-110); Potassium 4.2 mmol/L (3.5-5.5); Sodium 138 mmol/L (135-145)
[2023-05-23] MEDS: HYDROcodone/APAP 5-325MG 1 EACH TAB PO PRN (11:12)
--- NOTE | 2023-05-23 11:41 | P.PN ---
Subjective Progress Note Date: 05/23/23 Principal diagnosis: 1. DORSAL ULAR HAND ULCERATION, POSSIBLE BITE INJURY 2. ABSCESS DORSAL HAND Patient was seen at bedside this morning lying semirecumbent position with Enrique bandages present over left hand/wrist. Patient says her hand has been hurting since surgery. Pain medication has been helping somewhat with her pain. Patient has been up walking around the room since surgery. Patient denies any other issues at this time. Patient denies chest pain, fever, shortness of breath, nausea, vomiting, change in vision, loss of bowel/bladder control. Objective - Vital Signs Vital signs: Vital Signs Temp 102.7 F H 05/22/23 19:20 Pulse 110 H 05/22/23 19:20 Resp 19 05/22/23 19:20 BP 114/69 05/22/23 19:20 Pulse Ox 100 05/22/23 19:20 FiO2 Intake & Output 05/22/23 05/23/23 05/23/23 18:59 06:59 18:59 Weight 62.596 kg Other: Voiding Method Toilet Toilet Bedside Commode # Voids 3 - Exam Enrique bandage present over the left hand. Enrique bandage and dressing taken down at bedside this morning. Sutures well aligned and intact. Incision appears to be healing well. Negative for any x-rays. Drains are in place. Sensation is equal, symmetric, but intact throughout the upper and lower extremities. Patient does have full range of motion throughout left upper extremity and elbow flexion extension and shoulder forward elevation, extension external/internal rotation. There is limited range of motion in the left wrist secondary to referred pain in the left hand. Patient is able to move digits in left hand with minimal pain. 4+/5 in resisted left elbow flexion/extension and left shoulder forward elevation. 4-/5 in resisted left wrist flexion and extension. Cap refill under 3 seconds in digits of left upper extremity. Radial pulse intact on the right upper extremity. Negative Homans bilaterally. - Labs CBC & Chem 7: 05/23/23 05:24 05/23/23 05:24 Labs: Abnormal Lab Results - Last 24 Hours (Table) 05/23/23 Range/Units 05:24 Hgb 10.0 L (11.4-16.0) gm/dL Hct 31.4 L (34.0-46.0) % MCV 77.8 L (80.0-100.0) fL MCH 24.7 L (25.0-35.0) pg RDW 18.6 H (11.5-15.5) % Plt Count 108 L (150-450) k/uL Microbiology - Last 24 Hours (Table) 05/21/23 13:50 Gram Stain - Preliminary Hand - Left 05/21/23 13:50 Gram Stain - Preliminary Hand - Left 05/21/23 16:20 Blood Culture - Preliminary Blood 05/21/23 13:50 Gram Stain - Preliminary Hand - Left Assessment and Plan Assessment: 1. DORSAL ULAR HAND ULCERATION, POSSIBLE BITE INJURY 2. ABSCESS DORSAL HAND Postop day 2 status post - IRRIGATION AND EXCISIONAL DEBRIDMENT OF THE DORSAL ULNAR LEFT HAND [id number] Plan: 1. DORSAL ULAR HAND ULCERATION, POSSIBLE BITE INJURY; ABSCESS DORSAL HAND - surgery performed 05/21/2023 - IRRIGATION AND EXCISIONAL DEBRIDMENT OF THE DORSAL ULNAR LEFT HAND [id number]. patient stable at bedside this morning with Enrique bandage present over left hand/wrist. Enrique bandage and dressing taken down a t bedside this morning. Sutures are well aligned and intact. Drain is in place. We'll maintain drains at this time. Begin Hibiclens soaks this morning. Hibiclens soaks 15 minutes at a time for 3 times a day. Dressing may be changed and new bandage maybe place with Kerlix 4 x 4 and Adaptic. Patient may perform gentle range of motion exercises. Weightbearing as tolerated. Cultures taken during surgery pending at this time. Appreciate medical and ID management. Antibiotics per ID. We'll continue to follow patient during her stay in hospital. 2. Appreciate medical and ID management 3. Pain management - [place]; Tylenol 4. DVT prophylaxis - heparin 5. GI prophylaxis - Pepcid; senna 6. PT/OT - patient may perform gentle range of motion exercises of left hand 7. Encourage incentive spirometer use Time with Patient: Less than 30
[2023-05-23] MEDS ORDERED: VANCOMYCIN TROUGH DUE 1 EACH MISC MISCELLANE ONE (12:00)
[2023-05-23] MEDS: ONDANSETRON 4 MG/2 ML VIAL IVP PRN (13:08)
--- NOTE | 2023-05-23 15:01 | P.PN ---
Subjective Progress Note Date: 05/23/23 Patient is evaluated today resting in bed. Pending I and D of the left hand spider bite. Patient was noted to be positive for hepatitis C by IgG; IgM not checked patient states she knows she currently has hepatitis C and has not been treated for it yet but would like too. Will give the patient information to f/u with Dr. Vikki Jo on discharge. Patient continues on IV vancomycin. ID is following. Wound culture is showing anaerobic gram negative bacilli. 05/22/2023 Patient evaluated today resting in bed status post I&D of the left hand wound today with orthopedics. Remains on IV antibiotics. Flagyl has been added as well as IV cefepime. White count down to 2.6. Renal function stable. Blood pressure on the lower side patient states that she does run low usually. Required fluid bolus overnight. Maintenance fluids will be added. 05/23/2023 Patient is evaluated today more awake and alert. States she has not used IV drugs since November of this year. She is being hydrated. [place] was added for improved pain management. S/P I and D waiting for the cultures to finalize. Review of Systems Constitutional: Denied any fatigue denied any fever. Cardio vascular: denied any chest pain, palpitations Gastrointestinal: denied any nausea, vomiting, diarrhea Pulmonary: Denied any shortness of breath cough Neurologic denied any new focal deficits All inpatient medications were reviewed and appropriate changes in these medications as dictated in the interval history and assessment and plan. PHYSICAL EXAMINATION: GENERAL: The patient is alert and oriented x3, not in any acute distress. Well d eveloped, well nourished. HEENT: Pupils are round and equally reacting to light. EOMI. No scleral icterus. No conjunctival pallor. Normocephalic, atraumatic. No pharyngeal erythema. No thyromegaly. CARDIOVASCULAR: S1 and S2 present. No murmurs, rubs, or gallops. PULMONARY: Chest is clear to auscultation, no wheezing or crackles. ABDOMEN: Soft, nontender, nondistended, normoactive bowel sounds. No palpable organomegaly. MUSCULOSKELETAL: No joint swelling or deformity. EXTREMITIES: No cyanosis, clubbing, or pedal edema. NEUROLOGICAL: Gross neurological examination did not reveal any focal deficits. SKIN: No rashes. Assessment Left hand cellulitis, secondary to spider bite as per patient s/p I and D. hepatitis C infection Hypotension likely medication affect from pain medications. History of substance abuse, quit for the last few months as per patient History of asthma GI prophylaxis DVT prophylaxis Full Code Plan Continue IV antibiotics pending final wound cultures on combination of flagyl, cefepime and vancomycin. Continue normal saline at 75 mls/hr and follow up labs in AM. Continue pain management and supportive care Pending deep tissue cultures for antibiotic recommendations on discharge. The impression and plan of care has been dictated by Breann Walsh Nurse Practitioner as directed. Dr. Ham MD I have performed a history and physical examination and medical decision making of this patient, discussed the same with the dictator, and agree with the dictators assessment and plan as written, documented as a scribe. Based on total visit time, I have performed more than 50% of this visit. Objective - Vital Signs Vital signs: Vital Signs Temp 97.6 F 05/23/23 07:47 Pulse 64 05/23/23 07:47 Resp 17 05/23/23 07:47 BP 95/46 05/23/23 07:47 Pulse Ox 98 05/23/23 07:47 FiO2 Intake & Output 05/22/23 05/23/23 05/23/23 18:59 06:59 18:59 Weight 62.596 kg Other: Voiding Method Toilet Toilet Bedside Commode # Voids 3 - Labs CBC & Chem 7: 05/23/23 05:24 05/23/23 05:24 Labs: Abnormal Lab Results - Last 24 Hours (Table) 05/23/23 05/23/23 Range/Units 05:24 05:24 Hgb 10.0 L (11.4-16.0) gm/dL Hct 31.4 L (34.0-46.0) % MCV 77.8 L (80.0-100.0) fL MCH 24.7 L (25.0-35.0) pg RDW 18.6 H (11.5-15.5) % Plt Count 108 L (150-450) k/uL BUN 6.9 L (9.0-27.0) mg/dL BUN/Creatinine Ratio 8.62 L (12.00-20.00) Ratio Calcium 8.2 L (8.7-10.3) mg/dL Microbiology - Last 24 Hours (Table) 05/18/23 03:52 Blood Culture - Final Blood 05/18/23 03:52 Blood Culture - Final Blood 05/21/23 13:50 Gram Stain - Preliminary Hand - Left Wound Culture - Preliminary 05/21/23 13:50 Gram Stain - Preliminary Hand - Left Wound Culture - Preliminary 05/21/23 13:50 Gram Stain - Preliminary Hand - Left Wound Culture - Preliminary 05/21/23 16:20 Blood Culture - Preliminary Blood Assessment and Plan Time with Patient: Less than 30
[2023-05-23] MEDS: ACETAMINOPHEN TAB 325 MG TAB PO PRN (16:11)
--- NOTE | 2023-05-23 16:18 | P.PN ---
Subjective Progress Note Date: 05/22/23 Principal diagnosis: Left hand abscess and Ch hepatitis C Patient is a 32-year-old female with a past medical history significant for asthma previous history of MRSA skin and soft tissue infection, presenting to the ER for evaluation of left hand pain swelling and redness patient did have bedside drainage subsequently admitted to hospital for IV antibiotic therapy. Patient is status post surgical drainage of the left hand abscess on 05/21/2023 On today's evaluation that is 05/22/2023, the patient did spike a fever of 103F last night, the patient is afebrile this morning the patient is breathing comfortably on room air, the patient denies chest pain, shortness of breath or cough, patient denies nausea/vomiting , no diarrhea and no abdominal pain pain pain to the left hand has slightly decreased in intensity Patient did have a white count of 2.6 as of yesterday creatinine is 0.60, hepatitis C antibody positive cultures are so far negative. Objective - Vital Signs Vital signs: Vital Signs Temp 97.4 F L 05/22/23 07:29 Pulse 51 L 05/22/23 07:29 Resp 14 05/22/23 07:29 BP 84/41 05/22/23 10:30 Pulse Ox 100 05/22/23 07:29 FiO2 Intake & Output 05/21/23 05/22/23 05/22/23 18:59 06:59 18:59 Intake Total 1850 Output Total 10 1000 Balance 1840 -1000 Intake: IV 1850 Output: Urine 1000 Estimated Blood Loss 10 Other: Voiding Method Toilet # Voids 3 - Exam GENERAL DESCRIPTION: Elderly male lying in bed in no distress RESPIRATORY SYSTEM: Unlabored breathing , decreased breath sounds at bases HEART: S1 S2 regular rate and rhythm ,no loud murmurs ABDOMEN: Soft , no tenderness EXTREMITIES: No edema feet - Labs CBC & Chem 7: 05/23/23 05:24 05/23/23 05:24 Labs: Abnormal Lab Results - Last 24 Hours (Table) 05/21/23 05/21/23 Range/Units 16:20 16:20 WBC 2.6 L (3.8-10.6) k/uL Hgb 10.1 L (11.4-16.0) gm/dL Hct 32.5 L (34.0-46.0) % MCV 79.7 L (80.0-100.0) fL MCH 24.7 L (25.0-35.0) pg RDW 18.1 H (11.5-15.5) % Plt Count 147 L D (150-450) k/uL Neutrophils # (Manual) 1.20 L (1.3-7.7) k/uL C-Reactive Protein 5.9 H (<1.0) mg/dL Microbiology - Last 24 Hours (Table) 05/18/23 05:53 Anaerobic Culture - Final Hand - Left Anaerobic Gm Negative Bacilli 05/18/23 03:52 Blood Culture - Preliminary Blood 05/18/23 03:52 Blood Culture - Preliminary Blood Assessment and Plan (1) Hand abscess Current Visit: Yes Status: Acute Code(s): L02.519 - CUTANEOUS ABSCESS OF UNSPECIFIED HAND SNOMED Code(s): 5845700 (2) Chronic hepatitis Current Visit: Yes Status: Acute Code(s): K73.9 - CHRONIC HEPATITIS, UNSPECIFIED SNOMED Code(s): 25233477 Plan: 1patient with a left hand abscess and cellulitis likely from gram-positive skin codie questionable related to IV drugs the patient is complaining of related to a spider bite and likely from gram-positive skin codie such as MRSA 2possible surgical drainage tomorrow morning as per nursing staff. 3elevated liver enzymes with a positive hepatitis C antibody further work-up as an outpatient. 4patient will continue with the vancomycin, we will add cefepime and Flagyl while waiting for the culture finalized because of persistent fever Dictation was produced using [employer] dictation software. please excuse any grammatical, word or spelling errors. Time with Patient: Less than 30
--- NOTE | 2023-05-23 16:19 | P.PN ---
Subjective Progress Note Date: 05/23/23 Principal diagnosis: Left hand abscess and Ch hepatitis C Patient is a 32-year-old female with a past medical history significant for asthma previous history of MRSA skin and soft tissue infection, presenting to the ER for evaluation of left hand pain swelling and redness patient did have bedside drainage subsequently admitted to hospital for IV antibiotic therapy. Patient is status post surgical drainage of the left hand abscess on 05/21/2023 On today's evaluation that is 05/23/2023, the patient did spike a fever of 102F last night the patient is afebrile this morning, the patient is breathing comfortably on room air and no need for supplemental oxygen , the patient denies chest pain or cough, patient denies abdominal pain, no nausea/vomiting and no diarrhea has been reported, the patient pain to the left hand has slightly decreased in intensity Patient did have a white count of 6.4, creatinine 0.8, OR cultures are currently pending Objective - Vital Signs Vital signs: Vital Signs Temp 97.6 F 05/23/23 07:47 Pulse 64 05/23/23 07:47 Resp 17 05/23/23 07:47 BP 95/46 05/23/23 07:47 Pulse Ox 98 05/23/23 07:47 FiO2 Intake & Output 05/22/23 05/23/23 05/23/23 18:59 06:59 18:59 Weight 62.596 kg Other: Voiding Method Toilet Toilet Bedside Commode # Voids 3 - Exam GENERAL DESCRIPTION: Elderly male lying in bed in no distress RESPIRATORY SYSTEM: Unlabored breathing , decreased breath sounds at bases HEART: S1 S2 regular rate and rhythm ,no loud murmurs ABDOMEN: Soft , no tenderness EXTREMITIES: No edema feet - Labs CBC & Chem 7: 05/23/23 05:24 05/23/23 05:24 Labs: Abnormal Lab Results - Last 24 Hours (Table) 05/23/23 05/23/23 Range/Units 05:24 05:24 Hgb 10.0 L (11.4-16.0) gm/dL Hct 31.4 L (34.0-46.0) % MCV 77.8 L (80.0-100.0) fL MCH 24.7 L (25.0-35.0) pg RDW 18.6 H (11.5-15.5) % Plt Count 108 L (150-450) k/uL BUN 6.9 L (9.0-27.0) mg/dL BUN/Creatinine Ratio 8.62 L (12.00-20.00) Ratio Calcium 8.2 L (8.7-10.3) mg/dL Microbiology - Last 24 Hours (Table) 05/18/23 03:52 Blood Culture - Final Blood 05/18/23 03:52 Blood Culture - Final Blood 05/21/23 13:50 Gram Stain - Preliminary Hand - Left Wound Culture - Preliminary 05/21/23 13:50 Gram Stain - Preliminary Hand - Left Wound Culture - Preliminary 05/21/23 13:50 Gram Stain - Preliminary Hand - Left Wound Culture - Preliminary 05/21/23 16:20 Blood Culture - Preliminary Blood Assessment and Plan (1) Hand abscess Current Visit: Yes Status: Acute Code(s): L02.519 - CUTANEOUS ABSCESS OF UNSPECIFIED HAND SNOMED Code(s): 6150770 (2) Chronic hepatitis Current Visit: Yes Status: Acute Code(s): K73.9 - CHRONIC HEPATITIS, UNSPECIFIED SNOMED Code(s): 74597550 Plan: 1patient with a left hand abscess and cellulitis likely from gram-positive skin codie questionable related to IV drugs the patient is complaining of related to a spider bite and likely from gram-positive skin codie such as MRSA 2possible surgical drainage tomorrow morning as per nursing staff. 3elevated liver enzymes with a positive hepatitis C antibody further work-up as an outpatient. 4patient will continue with the vancomycin, cefepime and Flagyl while waiting for the culture finalized and monitored her clinical course closely Dictation was produced using [employer] dictation software. please excuse any grammatical, word or spelling errors.
[2023-05-24] MEDS: HYDROcodone/APAP 5-325MG 1 EACH TAB PO PRN ×3 (01:23→14:35)
[2023-05-24] MEDS: MORPHINE SULFATE 4 MG/ML SYRINGE IV PRN ×5 (03:56→21:14)
[2023-05-24] MEDS: IBUPROFEN 400 MG TAB PO PRN (05:05)
[2023-05-24] MEDS: VANCOMYCIN 1,000 MG in SODIUM CHLORIDE 0.9% 250 ML IVPB SCH ×2 (05:06→12:07)
[2023-05-24 06:06] LABS: African American GFR (CKD) >90 (>60 ml/min/1.73 sqM); Non-African American GFR(CKD) >90 (>60 ml/min/1.73 sqM)
[2023-05-24] MEDS: metroNIDAZOLE 500 MG TAB PO SCH ×3 (07:32→21:13)
[2023-05-24] MEDS: HEPARIN SODIUM,PORCINE 5,000 UNIT/ML 1 ML VIAL SQ SCH ×2 (07:33→21:14)
[2023-05-24] MEDS: CEFEPIME 2 GM in SODIUM CHLORIDE 0.9% 100 ML IVPB SCH ×3 (07:33→23:48)
[2023-05-24] MEDS: FAMOTIDINE 20 MG/2 ML VIAL IV SCH ×2 (07:33→21:14)
[2023-05-24] MEDS: ONDANSETRON 4 MG/2 ML VIAL IVP PRN (08:55)
--- NOTE | 2023-05-24 09:12 | P.PN ---
Subjective Progress Note Date: 05/24/23 Principal diagnosis: 1. DORSAL ULAR HAND ULCERATION, POSSIBLE BITE INJURY 2. ABSCESS DORSAL HAND Patient was seen at bedside this morning lying in semirecumbent position with Kerlix bandage present over left hand. Patient says her pain is doing better today than he was yesterday. Patient says she has been up walking around the room. Patient says she did do Hibiclens soaks yesterday. Patient mentions she did have fever yesterday. Patient denies any other issues at this time. Patient denies chest pain, shortness of breath, nausea, vomiting, change in vision, loss of bowel/bladder control. Objective - Vital Signs Vital signs: Vital Signs Temp 97.9 F 05/24/23 07:22 Pulse 69 05/24/23 07:22 Resp 19 05/24/23 07:22 BP 103/65 05/24/23 07:22 Pulse Ox 98 05/24/23 02:55 FiO2 Intake & Output 05/23/23 05/24/23 05/24/23 18:59 06:59 18:59 Weight 62.596 kg Other: Voiding Method Toilet Bedside Commode # Voids 2 3 - Exam Enrique bandage present over the left hand. Enrique bandage and dressing taken down at bedside this morning. Sutures well aligned and intact. Incision appears to be healing well. Negative for any drainage. Sensation is equal, symmetric, but intact throughout the upper and lower extremities. Patient does have full range of motion throughout left upper extremity and elbow flexion extension and shoulder forward elevation, extension external/internal rotation. There is limited range of motion in the left wrist secondary to referred pain in the left hand. Patient is able to move digits in left hand with minimal pain. 4+/5 in resisted left elbow flexion/extension and left shoulder forward elevation. 4-/5 in resisted left wrist flexion and extension. Cap refill under 3 seconds in digits of left upper extremity. Radial pulse intact on the right upper extremity. Negative Homans bilaterally. - Labs CBC & Chem 7: 05/23/23 05:24 05/24/23 05:41 Labs: Abnormal Lab Results - Last 24 Hours (Table) 05/23/23 Range/Units 05:24 BUN 6.9 L (9.0-27.0) mg/dL BUN/Creatinine Ratio 8.62 L (12.00-20.00) Ratio Calcium 8.2 L (8.7-10.3) mg/dL Microbiology - Last 24 Hours (Table) 05/21/23 16:20 Blood Culture - Preliminary Blood 05/18/23 03:52 Blood Culture - Final Blood 05/18/23 03:52 Blood Culture - Final Blood 05/21/23 13:50 Gram Stain - Preliminary Hand - Left Wound Culture - Preliminary 05/21/23 13:50 Gram Stain - Preliminary Hand - Left Wound Culture - Preliminary 05/21/23 13:50 Gram Stain - Preliminary Hand - Left Wound Culture - Preliminary Assessment and Plan Assessment: 1. DORSAL ULAR HAND ULCERATION, POSSIBLE BITE INJURY 2. ABSCESS DORSAL HAND Postop day 3 status post - IRRIGATION AND EXCISIONAL DEBRIDMENT OF THE DORSAL ULNAR LEFT HAND [id number] Plan: 1. DORSAL ULAR HAND ULCERATION, POSSIBLE BITE INJURY; ABSCESS DORSAL HAND - surgery performed 05/21/2023 - IRRIGATION AND EXCISIONAL DEBRIDMENT OF THE DORSAL ULNAR LEFT HAND [id number]. patient stable at bedside this morning with Enrique bandage present over left hand/wrist. Enrique bandage and dressing taken down at bedside this morning. Sutures are well aligned and intact. Continue Hibic lens soaks this morning. Hibiclens soaks 15 minutes at a time for 3 times a day. Dressing may be changed and new bandage maybe place with Kerlix 4 x 4 and Adaptic. Patient may perform gentle range of motion exercises. Weightbearing as tolerated. Cultures taken during surgery pending at this time. Appreciate medical and ID management. Antibiotics per ID. patient is stable from an orthopedic standpoint for discharge home. At this time, orthopedics is signing off. Please do not hesitate to contact us for any further questions. Patient to follow-up with Dr. Cohn office in 2 weeks. 2. Appreciate medical and ID management 3. Pain management - [place]; Tylenol 4. DVT prophylaxis - heparin 5. GI prophylaxis - Pepcid; senna 6. PT/OT - patient may perform gentle range of motion exercises of left hand 7. Encourage incentive spirometer use Time with Patient: Less than 30
--- NOTE | 2023-05-24 16:24 | P.PN ---
Subjective Progress Note Date: 05/24/23 Principal diagnosis: Left hand abscess and Ch hepatitis C Patient is a 32-year-old female with a past medical history significant for asthma previous history of MRSA skin and soft tissue infection, presenting to the ER for evaluation of left hand pain swelling and redness patient did have bedside drainage subsequently admitted to hospital for IV antibiotic therapy. Patient is status post surgical drainage of the left hand abscess on 05/21/2023 On today's evaluation that is 05/24/2023, the patient remains to be afebrile the patient is breathing comfortably on room air without need for supplemental oxygen, the patient denies chest pain, shortness of breath or cough, patient denies nausea/vomiting , no diarrhea and no abdominal pain, the patient pain to the left hand has decreased in intensity Patient did have a white count of 6.4, creatinine 0.8 as of yesterday, OR cultures are currently pending Objective - Vital Signs Vital signs: Vital Signs Temp 97.9 F 05/24/23 07:22 Pulse 69 05/24/23 07:22 Resp 19 05/24/23 07:22 BP 103/65 05/24/23 07:22 Pulse Ox 98 05/24/23 02:55 FiO2 Intake & Output 05/23/23 05/24/23 05/24/23 18:59 06:59 18:59 Weight 62.596 kg Other: Voiding Method Toilet Bedside Commode # Voids 2 3 - Exam GENERAL DESCRIPTION: Middle-aged female lying in bed in no distress RESPIRATORY SYSTEM: Unlabored breathing , decreased breath sounds at bases HEART: S1 S2 regular rate and rhythm ,no loud murmurs ABDOMEN: Soft , no tenderness EXTREMITIES: Left hand is currently dressed RN mention overall swelling redness has decreased - Labs CBC & Chem 7: 05/23/23 05:24 05/24/23 05:41 Labs: Microbiology - Last 24 Hours (Table) 05/21/23 13:50 Gram Stain - Final Hand - Left Wound Culture - Final 05/21/23 13:50 Gram Stain - Final Hand - Left Wound Culture - Final 05/21/23 13:50 Gram Stain - Final Hand - Left Wound Culture - Final 05/21/23 16:20 Blood Culture - Preliminary Blood 05/18/23 03:52 Blood Culture - Final Blood 05/18/23 03:52 Blood Culture - Final Blood Assessment and Plan (1) Hand abscess Current Visit: Yes Status: Acute Code(s): L02.519 - CUTANEOUS ABSCESS OF UNSPECIFIED HAND SNOMED Code(s): 6928308 (2) Chronic hepatitis Current Visit: Yes Status: Acute Code(s): K73.9 - CHRONIC HEPATITIS, UNSPECIFIED SNOMED Code(s): 72669145 Plan: 1patient with a left hand abscess and cellulitis likely from gram-positive skin codie questionable related to IV drugs the patient is complaining of related to a spider bite and likely from gram-positive skin codie such as MRSA 2patient is status post surgical drainage and cultures are currently pending 3elevated liver enzymes with a positive hepatitis C antibody further work-up as an outpatient. 4patient will continue with cefepime and Flagyl however discontinue vancomycin as no MRSA has been grown so far Dictation was produced using [employer] dictation software. please excuse any grammatical, word or spelling errors. Time with Patient: Less than 30
[2023-05-24] MEDS: SODIUM CHLORIDE 0.9% 1,000 ML IV SCH ×2 (17:11→23:49)
[2023-05-24] MEDS: hydrOXYzine pamoate 25 MG CAP PO PRN (23:48)
[2023-05-25] MEDS: HYDROcodone/APAP 5-325MG 1 EACH TAB PO PRN ×2 (01:13→06:42)
[2023-05-25] MEDS: MORPHINE SULFATE 4 MG/ML SYRINGE IV PRN ×2 (03:10→08:24)
[2023-05-25 08:23] VITALS: BP 106/64; PULSE 61; RESP 18; TEMP 98.1
[2023-05-25] MEDS: IBUPROFEN 400 MG TAB PO PRN (08:25)
[2023-05-25] MEDS: metroNIDAZOLE 500 MG TAB PO SCH (08:25)
[2023-05-25] MEDS: CEFEPIME 2 GM in SODIUM CHLORIDE 0.9% 100 ML IVPB SCH (08:25)
[2023-05-25] MEDS: FAMOTIDINE 20 MG/2 ML VIAL IV SCH (08:25)
[2023-05-25 08:52] LABS: Anisocytosis Slight; Basophils % (A) 0 %; Eosinophils % (A) 1 %; HCT 29.5 % (34.0-46.0); Hypochromasia Moderate; Lymphocytes # (A) 3.8 k/uL (1.0-4.8); Lymphocytes % (A) 56 %; MCH 23.9 pg (25.0-35.0); MCHC 30.5 g/dL (31.0-37.0); MCV 78.4 fL (80.0-100.0); Mean Platelet Volume 9.2; Microcytosis Slight; Monocytes # (A) 0.2 k/uL (0-1.0); Monocytes % (A) 3 %; Neutrophils # (A) 2.5 k/uL (1.3-7.7); Neutrophils % (A) 37 %; Platelet Count 149 k/uL (150-450); RBC 3.76 m/uL (3.80-5.40); RDW 18.9 % (11.5-15.5); WBC 6.9 k/uL (3.8-10.6)
[2023-05-25 10:42] LABS: ALT 224 U/L (4-34); AST 42 U/L (14-36); African American GFR (CKD) >90 (>60 ml/min/1.73 sqM); Albumin 2.3 g/dL (3.5-5.0); Albumin/Globulin Ratio 0.7; Alkaline Phosphatase 426 U/L (38-126); Anion Gap 8 mmol/L; Blood Urea Nitrogen 12 mg/dL (7-17); C Reactive Protein 2.5 mg/dL (<1.0); Calcium 8.1 mg/dL (8.4-10.2); Carbon Dioxide 24 mmol/L (22-30); Chloride 105 mmol/L (98-107); Globulin 3.1 g/dL; Glucose 118 mg/dL (74-99); Non-African American GFR(CKD) >90 (>60 ml/min/1.73 sqM); Potassium 4.3 mmol/L (3.5-5.1); Sodium 137 mmol/L (137-145); Total Bilirubin 0.9 mg/dL (0.2-1.3); Total Protein 5.4 g/dL (6.3-8.2)
--- NOTE | 2023-05-25 11:48 | P.PN ---
Subjective Progress Note Date: 05/24/23 Patient is evaluated today resting in bed. Pending I and D of the left hand spider bite. Patient was noted to be positive for hepatitis C by IgG; IgM not checked patient states she knows she currently has hepatitis C and has not been treated for it yet but would like too. Will give the patient information to f/u with Dr. Vikki oJ on discharge. Patient continues on IV vancomycin. ID is following. Wound culture is showing anaerobic gram negative bacilli. 05/22/2023 Patient evaluated today resting in bed status post I&D of the left hand wound today with orthopedics. Remains on IV antibiotics. Flagyl has been added as well as IV cefepime. White count down to 2.6. Renal function stable. Blood pressure on the lower side patient states that she does run low usually. Required fluid bolus overnight. Maintenance fluids will be added. 05/23/2023 Patient is evaluated today more awake and alert. States she has not used IV drugs since November of this year. She is being hydrated. [place] was added for improved pain management. S/P I and D waiting for the cultures to finalize. 05/24/2023 Patient is evaluated today sitting up in bed again more awake and alert states she is feeling better overall. The left upper extremity swelling is markedly improved. Her hand is wrapped she had completed the dakins solution soak this AM. Status post I&D and wound cultures are negative and final. Patient has had no more fever. Review of Systems Constitutional: Denied any fatigue denied any fever. Cardio vascular: denied any chest pain, palpitations Gastrointestinal: denied any nausea, vomiting, diarrhea Pulmonary: Denied any shortness of breath cough Neurologic denied any new focal deficits All inpatient medications were reviewed and appropriate changes in these medications as dictated in the interval history and assessment and plan. PHYSICAL EXAMINATION: GENERAL: The patient is alert and oriented x3, not in any acute distress. Well developed, well nourished. HEENT: Pupils are round and equally reacting to light. EOMI. No scleral icterus. No conjunctival pallor. Normocephalic, atraumatic. No pharyngeal erythema. No thyromegaly. CARDIOVASCULAR: S1 and S2 present. No murmurs, rubs, or gallops. PULMONARY: Chest is clear to auscultation, no wheezing or crackles. ABDOMEN: Soft, nontender, nondistended, normoactive bowel sounds. No palpable organomegaly. MUSCULOSKELETAL: No joint swelling or deformity. EXTREMITIES: No cyanosis, clubbing, or pedal edema. NEUROLOGICAL: Gross neurological examination did not reveal any focal deficits. SKIN: No rashes. Assessment Left hand cellulitis, secondary to spider bite as per patient s/p I and D. hepatitis C infection Hypotension likely medication affect from pain medications. History of substance abuse, quit for the last few months as per patient History of asthma GI prophylaxis DVT prophylaxis Full Code Plan Continue IV antibiotics pending final wound cultures on combination of flagyl, cefepime and vancomycin. Continue normal saline at 75 mls/hr and follow up labs in AM. Continue pain management and supportive care Pending deep tissue cultures for antibiotic recommendations on discharge. The impression and plan of care has been dictated by Breann Walsh, Nurse Practitioner as directed. Dr. Hma MD I have performed a history and physical examination and medical decision making of this patient, discussed the same with the dictator, and agree with the dictators assessment and plan as written, documented as a scribe. Based on total visit time, I have performed more than 50% of this visit. Objective - Vital Signs Vital signs: Vital Signs Temp 98.0 F 05/24/23 14:07 Pulse 79 05/24/23 14:07 Resp 16 05/24/23 14:07 BP 98/58 05/24/23 14:07 Pulse Ox 98 05/24/23 02:55 FiO2 Intake & Output 05/23/23 05/24/23 05/24/23 18:59 06:59 18:59 Weight 62.596 kg Other: Voiding Method Toilet Bedside Commode # Voids 2 3 - Labs CBC & Chem 7: 05/25/23 07:29 05/25/23 07:29 Labs: Microbiology - Last 24 Hours (Table) 05/21/23 13:50 Gram Stain - Final Hand - Left Wound Culture - Final 05/21/23 13:50 Gram Stain - Final Hand - Left Wound Culture - Final 05/21/23 13:50 Gram Stain - Final Hand - Left Wound Culture - Final 05/21/23 16:20 Blood Culture - Preliminary Blood 05/18/23 03:52 Blood Culture - Final Blood 05/18/23 03:52 Blood Culture - Final Blood
--- NOTE | 2023-05-28 21:56 | P.DS ---
Providers Date of admission: 05/18/23 06:07 Attending physician: Esau Freedman MD Consults: 05/18/23 06:32 Consult Physician Routine Consulting Provider: Chris Cohn Consult Reason/Comments: spider bite, hand abscess/cellulitis Do you want consulting provider notified?: Yes Consult Physician Routine Consulting Provider: Dann Mccormack Consult Reason/Comments: left hand abscess/cellulitis from spider bite Do you want consulting provider notified?: Yes Primary care physician: Stated None Hospital Course: Final Diagnosis Left hand cellulitis, secondary to spider bite as per patient s/p I and D. hepatitis C infection Hypotension likely medication affect from pain medications. History of substance abuse, quit for the last few months as per patient History of asthma GI prophylaxis DVT prophylaxis Full Code Discharge Disposition Patient is stable for discharge home. Complete antibiotic therapy with 10 days of oral ceftin and oral flagyl. Patient to follow up with Dr. Mccormack in the offic e in 1 week. Pt instructed to keep the left hand incision clean and dry. Patient to continue gentle ROM exercises to the left hand and follow up with Dr. Sanchez in the office in 2 weeks. Patient has been given Dr. Vikki Vasquez information to f/u for hepatitis C evaluation and treatment. Patient needs to establish care with a PCP and recommend iron studies outpatient for the anemia. Continue with over the counter medications for pain management. Hospital Course This is a pleasant 32 year old female with medication history of asthma, IV drug use. Patient presents due to left hand swelling and pain states she was bit by a spider about 2 days ago. Patient was tachycardic on admission with significant swelling to the left hand and forearm. White count was normal at 9.8. AST/ALT are midly elevated. Patient was admitted to the hospital with consult placed to orthopedics and infectious disease and was started on Vancomycin. Hand xray reveals no acute fracture or dislocation. There is soft tissue swelling overlying the dorsum of the left hand. No evidenc for osteomyelitis. Hepatitis panel was done due to the elevated LFTs and hepatitis C came back as positive and patient was informed. On 05/21/[address] Cohn performed Irrigation and debridement of the left hand abscess measuring 5x5x5 cm. Necrotic tissue was removed. All cultures negative with the exception of culture on 05/18 showing anaerobic gram negative bacilli. Patient was treated with Vancomycin, cefepime and flagyl while inpatient. Was completing hand soaks with dakins solution also. Cellulitis and swelling has markedly improved. Patients pain has improved. She is able to use her left hand. Patient is afebrile and white count remains normal. No chest pain, no nausea vomiting or diarrhea. Patient will be discharged home with the above mentioned recommendations. Please see medication reconciliation for a list of current medication. Thank you for allowing us to participate in the care of this patient. The impression and plan of care has been dictated by Breann Walsh, Nurse Practitioner as directed. Dr. Ham MD I have performed a history and physical examination and medical decision making of this patient, discussed the same with the dictator, and agree with the dictators assessment and plan as written, documented as a scribe. Based on total visit time, I have performed more than 50% of this visit. Patient Condition at Discharge: Stable Plan - Discharge Summary Discharge Rx Participant: No New Discharge Prescriptions: New Famotidine [Pepcid] 20 mg PO DAILY #30 tablet Ibuprofen [Motrin] 600 mg PO Q6HR PRN #20 tab PRN Reason: Pain cefUROXime axetiL [Ceftin] 500 mg PO BID 10 Days #20 tab metroNIDAZOLE [Flagyl] 500 mg PO TID 10 Days #30 tab Continue Acetaminophen Tab [Tylenol] 650 mg PO Q6HR PRN PRN Reason: Fever And/ Or Pain Discontinued Ibuprofen [Motrin Ib] 800 mg PO Q8H PRN PRN Reason: Fever And/ Or Pain Discharge Medication List Acetaminophen Tab [Tylenol] 650 mg PO Q6HR PRN 05/18/23 [History] Famotidine [Pepcid] 20 mg PO DAILY #30 tablet 05/25/23 [Rx] Ibuprofen [Motrin] 600 mg PO Q6HR PRN #20 tab 05/25/23 [Rx] cefUROXime axetiL [Ceftin] 500 mg PO BID 10 Days #20 tab 05/25/23 [Rx] metroNIDAZOLE [Flagyl] 500 mg PO TID 10 Days #30 tab 05/25/23 [Rx] Follow up Appointment(s)/Referral(s): Sharron Jo MD [STAFF PHYSICIAN] - 1 Week (GI PHYHSICIAN FOR YOUR HEPATITIS C) None,Stated [Primary Care Provider] - 1-2 days Chris Cohn DO [Doctor of Osteopathic Medicine] - 10 Days Dann Mccormack MD [STAFF PHYSICIAN] - 1 Week Patient Instructions/Handouts: Incision and Drainage (DC) Activity/Diet/Wound Care/Special Instructions: 1. Keep incision clean, dry, intact. 2. [id number] pain medication as needed. 3. Perform gentle range of motion exercises of left hand 4. Follow up with Dr. Cohn in office in 2 weeks for postop evaluation 5. Contact [facility] at: [phone] with any questions Continue with oral antibiotics for the next 10 days. Ceftin 500 mg twice a day for 10 days and Flaygl 500 mg three times a day for 10 days. Follow up with Dr Mccormack in the office in 1 week. Please follow up with Dr. Vikki Jo regarding treatment for the hepatitis C Establish care with a PCP and recommend iron studies outpatient for the anemia Discharge Disposition: HOME SELF-CARE
--- NOTE | 2023-05-30 08:19 | P.PN ---
Subjective A pleasant 32 years old female with past medical history of asthma. Patient presents because of left hand pain and swelling stating that she has a s pider bit her about 2 days ago on admission patient is tachycardic Labs showed WBCs 9.8, hemoglobin 10.6. Trace of 60, INR, BMP and liver enzymes are unremarkable except for mildly elevated AST and ALT. Hand x-ray: No acute fracture or dislocation Patient already started on IV vancomycin. Orthopedic team evaluated the patient and plan for I and D tomorrow Preoperative test patient declined, risks benefits are explained She denies smoking alcohol or illicit drugs. She states she used to use illicit drugs last time was less 05/19/2023 Patient left hand cellulitis and swelling and tenderness improving, she can use it partially to hold for can eat as patient is left-handed. She still have some limitation of movement and patient understands that might be some functional deficit however PT/OT would be consulted for further management. Also patient reports significant improvement in her left hand swelling and tenderness, She remains on IV vancomycin Orthopedic team are planning for surgical drainage and debridement this coming week. Also patient hepatitis C antibody came back positive, liver enzymes mildly elevated. Patient with no abdominal pain or right upper quadrant tenderness. Patient was not aware she has hepatitis C and she was informed she has this liver infection and she was instructed to follow up with Dr. Jo from GI service as an outpatient {contact information Dr. Jo as provided discharge instructions} Patient looks better controlled today 05/20/2023 Patient had cellulitis improving slowly and gradually while she is on IV antibiotics iv vacnomycin Orthopedic surgery team on the case no new complaint Active Medications Generic Name Dose Route Start Last Admin Trade Name Christina PRN Reason Stop Dose Admin Acetaminophen 650 mg 05/18/23 06:07 05/19/23 20:04 Acetaminophen Tab 325 Mg Tab PO 650 mg Q6HR PRN Administration Mild Pain or Fever > 100.5 Famotidine 20 mg 05/18/23 21:00 05/19/23 20:05 Famotidine 20 Mg/2 Ml Vial IV 20 mg Q12HR SUMAN Administration Heparin Sodium (Porcine) 5,000 unit 05/18/23 21:00 05/19/23 20:05 Heparin Sodium,Porcine 5,000 Unit/Ml 1 Ml Vial SQ 5,000 unit Q12HR SUMAN Administration Vancomycin HCl 1,000 mg/ 250 mls @ 125 mls/hr 05/18/23 13:00 05/19/23 13:04 Sodium Chloride IVPB 125 mls/hr Q8H SUMAN Administration Morphine Sulfate 4 mg 05/18/23 06:07 05/19/23 18:07 Morphine Sulfate 4 Mg/Ml Syringe IV 4 mg Q4HR PRN Administration Severe Pain (Scale 7 to 10) Naloxone HCl 0.2 mg 05/18/23 06:07 Naloxone 0.4 Mg/Ml 1 Ml Vial IV Q2M PRN Opioid Reversal Ondansetron HCl 4 mg 05/18/23 10:24 Ondansetron 4 Mg/2 Ml Vial IVP Q3HR PRN Nausea And Vomiting Objective - Vital Signs Vital signs: Vital Signs Temp 98.4 F 05/20/23 14:00 Pulse 78 05/20/23 14:00 Resp 16 05/20/23 14:00 BP 94/52 05/20/23 14:00 Pulse Ox 100 05/20/23 14:00 FiO2 Intake & Output 05/19/23 05/20/23 05/20/23 18:59 06:59 18:59 Other: Voiding Method Toilet Toilet # Voids 3 2 1 - Exam GENERAL: The patient is alert and oriented x3, not in any acute distress. Well developed, well nourished. HEENT: Pupils are round and equally reacting to light. EOMI. No scleral icterus. No conjunctival pallor. Normocephalic, atraumatic. No pharyngeal erythema. No thyromegaly. CARDIOVASCULAR: S1 and S2 present. No murmurs, rubs, or gallops. PULMONARY: Chest is clear to auscultation, no wheezing , no crackles. ABDOMEN: Soft, nontender, nondistended, normoactive bowel sounds. No palpable organomegaly. MUSCULOSKELETAL: No joint swelling or deformity. -EXTREMITIES: No cyanosis, clubbing, or pedal edema. Left hand swelling and t enderness and erythema , improving slightly NEUROLOGICAL: Gross neurological examination did not reveal any focal deficits. SKIN: No rashes. no petechiae. - Labs CBC & Chem 7: 05/25/23 07:29 05/25/23 07:29 Labs: Abnormal Lab Results - Last 24 Hours (Table) 05/20/23 Range/Units 06:19 Creatinine 0.41 L (0.52-1.04) mg/dL Microbiology - Last 24 Hours (Table) 05/18/23 03:52 Blood Culture - Preliminary Blood 05/18/23 03:52 Blood Culture - Preliminary Blood 05/18/23 05:53 Gram Stain - Final Hand - Left Wound Culture - Final Assessment and Plan Assessment: Left hand cellulitis, secondary to spider bite as per patient hepatitis C infection History of substance abuse, quit for the last few months as per patient History of asthma Plan: continue with IV vancomycin Monitor creatinine and vitals Orthopedic and infectious disease consult patient may benefit from I&D by orthopedic team early next week Patient is made aware of her diagnosis of biopsy with recommendation to follow up with Dr. Jo as an outpatient and she agrees Labs and medication were reviewed.. Continue same treatment. Continue with symptomatic treatment. Resume home medication. Monitor labs and vitals. DVT and GI prophylaxis. Further recommendations as per clinical course of the patient DVT prophylaxis: Subcutaneous heparin GI Prophylaxis: Pepcid PT/OT: Pending Prognosis is guarded
== END 2023-05-25 12:34 | disposition home or self-care (01) | DRG 364 ==
LOC: EC 03:08 → 6NMEDSUR 06:07 → OBSVTOIN 06:07 → 4SSUR 08:23
PROVIDERS: ADMIT Internal Medicine; ATTEND Internal Medicine
PROC: 3E0234Z Introduction of Serum, Toxoid and Vaccine into Muscle, Percutaneous Approach (ICD-10-PCS; 2023-05-18)
PROC: 0JBK0ZZ Excision of Left Hand Subcutaneous Tissue and Fascia, Open Approach (ICD-10-PCS; principal; 2023-05-21 07:30)
DX: L02.512 Cutaneous abscess of left hand (principal); L03.114 Cellulitis of left upper limb; B18.2 Chronic viral hepatitis C; F19.11 Other psychoactive substance abuse, in remission; T63.301A Toxic effect of unspecified spider venom, accidental (unintentional), initial encounter; I95.2 Hypotension due to drugs; T40.605A Adverse effect of unspecified narcotics, initial encounter; Z23 Encounter for immunization; J45.909 Unspecified asthma, uncomplicated; Z87.891 Personal history of nicotine dependence; Z86.14 Personal history of Methicillin resistant Staphylococcus aureus infection; Z88.0 Allergy status to penicillin; Y92.230 Patient room in hospital as the place of occurrence of the external cause
CPT/HCPCS: 36415; 80048; 80053; 80074; 80202; 82550; 82565; 83605; 83735; 84703; 85025; 85610; 85730; 86140; 87040; 87070; 87075; 87205; 90471; 90715; 96365; 96366; 96375; 99285

== ENCOUNTER 2023-07-19 19:33 | Emergency (ER) | payer OTHER ==
[2023-07-19] MEDS ORDERED: SODIUM CHLORIDE 0.9% 1,000 ML IV STA (20:08)
[2023-07-19 21:17] LABS: ALT 295 U/L (4-34); African American GFR (CKD) >90 (>60 ml/min/1.73 sqM); Albumin 4.2 g/dL (3.5-5.0); Anion Gap 15 mmol/L; Blood Urea Nitrogen 15 mg/dL (7-17); C Reactive Protein 5.3 mg/dL (<1.0); Calcium 9.7 mg/dL (8.4-10.2); Carbon Dioxide 21 mmol/L (22-30); Chloride 100 mmol/L (98-107); Glucose 118 mg/dL (74-99); Lipase 96 U/L (23-300); Non-African American GFR(CKD) >90 (>60 ml/min/1.73 sqM); Sodium 136 mmol/L (137-145); Total Bilirubin 2.3 mg/dL (0.2-1.3); Total Protein 8.4 g/dL (6.3-8.2)
[2023-07-19 21:18] LABS: AST 459 U/L (14-36); Alkaline Phosphatase 255 U/L (38-126); Potassium 4.1 mmol/L (3.5-5.1)
[2023-07-19] MEDS ORDERED: MORPHINE SULFATE 4 MG/ML SYRINGE IVP STA ×2 (21:27→23:46)
[2023-07-19] MEDS ORDERED: ONDANSETRON 4 MG/2 ML VIAL IVP STA (21:28)
[2023-07-19 21:32] LABS: Anisocytosis Slight; Basophils % (A) 0 %; Eosinophils # (A) 0.1 k/uL (0-0.7); Eosinophils % (A) 1 %; HCT 33.3 % (34.0-46.0); HGB 10.8 gm/dL (11.4-16.0); Hypochromasia Slight; Lymphocytes # (A) 1.2 k/uL (1.0-4.8); Lymphocytes % (A) 13 %; MCH 24.3 pg (25.0-35.0); MCHC 32.3 g/dL (31.0-37.0); MCV 75.1 fL (80.0-100.0); Mean Platelet Volume 8.7; Microcytosis Moderate; Monocytes # (A) 0.4 k/uL (0-1.0); Monocytes % (A) 4 %; Neutrophils # (A) 7.6 k/uL (1.3-7.7); Neutrophils % (A) 81 %; RBC 4.44 m/uL (3.80-5.40); WBC 9.4 k/uL (3.8-10.6)
[2023-07-19 21:33] LABS: Platelet Count 409 k/uL (150-450)
[2023-07-19 23:04] VITALS: RESP 18; TEMP 98
[2023-07-19] MEDS ORDERED: cefTRIAXone IN SWFI 1,000 MG/10 ML SYRINGE IVP STA (23:47)
--- NOTE | 2023-07-19 23:49 | ED ---
Abdominal Pain HPI - General Chief Complaint: Abdominal Pain Stated Complaint: Abd Pain,Vomiting Time Seen by Provider: 07/19/23 20:07 Source: patient Mode of arrival: ambulatory Limitations: no limitations - History of Present Illness Initial Comments: Lenore is a 33-year-old female who presents the ER today for evaluation of right-sided abdominal pain nausea and vomiting. Pain is been going on throughout the day today. No exacerbating or relieving factors. Worse with palpation. Patient's had nonbloody nonbilious emesis. No history of previous abdominal surgeries. She also reports low back pain and states she feels like she broke her back but denies any trauma. Patient does have a history of IV drug use she states she has not used IV drugs 2 years however she has normal bilateral extremities concerning for skin popping. She was admitted twice this year for abscesses related to skin popping. - Related Data Home Medications Medication Instructions Recorded Confirmed Acetaminophen Tab [Tylenol] 650 mg PO Q6HR PRN 05/18/23 05/18/23 Previous Rx's Medication Instructions Recorded Famotidine [Pepcid] 20 mg PO DAILY #30 tablet 05/25/23 Ibuprofen [Motrin] 600 mg PO Q6HR PRN #20 tab 05/25/23 cefUROXime axetiL [Ceftin] 500 mg PO BID 10 Days #20 tab 05/25/23 metroNIDAZOLE [Flagyl] 500 mg PO TID 10 Days #30 tab 05/25/23 Allergies Allergy/AdvReac Type Severity Reaction Status Date / Time Penicillins Allergy Rash/Hives Verified 07/19/23 19:52 tomato Allergy Rash/Hives Verified 07/19/23 19:52 Review of Systems ROS Statement: Those systems with pertinent positive or pertinent negative responses have been documented in the HPI. ROS Other: All systems not noted in ROS Statement are negative. Past Medical History Past Medical History: Asthma Additional Past Medical History / Comment(s): Patient has 5 living children from 4 pregnancies. She's had section and tubal ligation. History of Any Multi-Drug Resistant Organisms: MRSA Date of last positivie culture/infection: 11/27/22 MDRO Source:: Left Foot Past Surgical History: Adenoidectomy, Appendectomy, Section, Ear Surgery, Tubal Ligation Additional Past Surgical History / Comment(s): Tubes in bilat ears Past Anesthesia/Blood Transfusion Reactions: No Reported Reaction Past Psychological History: Anxiety, Depression Smoking Status: Former smoker Past Alcohol Use History: None Reported Past Drug Use History: Marijuana General Exam - General Exam Comments Initial Comments: Physical Exam GENERAL: Ill appearing, underweight HENT: Normocephalic, Atraumatic. EYES: PERRL, EOMI PULMONARY: Unlabored respirations. No audible rales rhonchi or wheezing was noted. CARDIOVASCULAR: There is a regular rate and rhythm without any murmurs gallops or rubs. ABDOMEN: Tender in right upper and lower quadrant SKIN: Lesions on extremities consistent with skin popping or IV drug use : Deferred NEUROLOGIC: Patient is alert and oriented x3. Moving all extremities spontaneously MUSCULOSKELETAL: Normal extremities with adequate strength and full range of motion. No lower extremity swelling or edema. No calf tenderness. PSYCHIATRIC: Agitated, screaming out in pain repeatedly Limitations: no limitations Course Vital Signs 07/19/23 07/19/23 07/20/23 19:49 22:30 00:30 Temperature 98.2 F 98.0 F Pulse Rate 73 78 73 Respiratory 17 18 18 Rate Blood Pressure 130/84 126/80 133/90 O2 Sat by Pulse 100 100 99 Oximetry 07/20/23 07/20/23 01:47 02:17 Temperature Pulse Rate 73 72 Respiratory 18 18 Rate Blood Pressure 131/90 124/88 O2 Sat by Pulse 99 98 Oximetry Medical Decision Making - Medical Decision Making Was pt. sent in by a medical professional or institution ([facility], [employer], urgent care, hospital, or fci...) When possible be specific @ -No Did you speak to anyone other than the patient for history (EMS, parent, family, police, friend...)? What history was obtained from this source @ -No Did you review nursing and triage notes (agree or disagree)? Why? @ -I reviewed and agree with nursing and triage notes Were old charts reviewed (outside hosp., previous admission, EMS record, old EKG, old radiological studies, urgent care reports/EKG's, fci records)? Report findings @ -Previous labs and microbiology reports were reviewed Differential Diagnosis (chest pain, altered mental status, abdominal pain women, abdominal pain men, vaginal bleeding, weakness, fever, dyspnea, syncope, headache, dizziness, GI bleed, back pain, seizure, CVA, palpatations, mental health)? @ -Differential Abdominal Pain Women: Appendicitis, Cholecystitis, diverticulosis, ischemic bowel, pancreatitis, hepatitis, UTI, gastroenteritis, AAA, incarcerated hernia, bowel obstruction, constipation, inflammatory bowel, hepatitis, peptic ulcer disease, splenic infarction, perforated viscus, vulvitis, ovarian torsion, PID, kidney stone, placenta abruption, this is not meant to be an all-inclusive list EKG interpreted by me (3pts min.). @ -As above X-rays interpreted by me (1pt min.). @ -None done CT interpreted by me (1pt min.). @ -Hepatosplenomegaly with a significantly enlarged gallbladder I see no obvious stones U/S interpreted by me (1pt. min.). @ -None done What testing was considered but not performed or refused? (CT, X-rays, U/S, labs)? Why? @ -None What meds were considered but not given or refused? Why? @ -Zosyn was considered for acute cholecystitis but contraindicated due to AL LERGY Did you discuss the management of the patient with other professionals (prof denniss i.e. , PA, [employer], lab, RT, psych nurse, healthcare social worker, high school coach, teacher, commercial account officer, case consultant)? Give summary @ -ER physician Smoking cessation discussed for >3mins.? @ -[No Ws critical care preformed (if so, how long)? @ -[No Wre there social determinants of health that impacted care today? How? (Homelessness, low income, unemployed, alcoholism, drug addiction, transportation, low edu. Level, literacy, decrease access to med. care, longterm, rehab)? @ -drug addiction Was there de-escalation of care discussed even if they declined (Discuss DNR or withdrawal of care, Hospice)? DNR status @ -[No Karis co-morbidities impacted this encounter? (DM, HTN, Smoking, COPD, CAD, Cancer, CVA, ARF, Chemo, Hep., AIDS, mental health diagnosis, sleep apnea, morbid obesity)? @ -[Jamie] Ws patient admitted / discharged? Hospital course, mention meds given and route, prescriptions, significant lab abnormalities, going to OR and other pertinent info. @ Transferred to outside hospital The patient was seen and evaluated history was obtained from patient and review of medical record. Upon evaluation patient was writhing in pain complaining of pain throughout her entire right abdomen and back. No dysuria. Labs were obtained she has transaminitis and elevated bilirubin, without leukocytosis. She has chronic anemia which is unchanged from baseline. Computed tomography scan reveals an enlarged gallbladder, hepatosplenomegaly, elevated common bile duct without evidence of a stone. This concerning for biliary obstruction. Incidentally there is also noted be evidence of osteomyelitis at L2-L3 with discitis. Given the patient's history of IV drug abuse and skin popping she is high risk for having developed osteomyelitis and discitis. Vancomycin was ordered to her antibiotic regimen. Patient will require care by a multidisciplinary team including general surgery, GI, spine surgery, infectious disease. We currently do not have GI available at this hospital therefore patient will require transfer. Patient is agreeable with transfer to any facility they can treat her. Patient care was discussed with ER physician Dr. Lutz at [facility] in [place]. She except patient is an ER to ER transfer. Undiagnosed new problem with uncertain prognosis? @ -Yes Drug Therapy requiring intensive monitoring for toxicity (Heparin, Nitro, Insulin, Cardizem)? @ -[No Wre any procedures done? @ -[No Dagnosis/symptom? @ -Osteomyelitis and discitis and lumbar spine Acute, or Chronic, or Acute on Chronic? @ Acute Uncomplicated (without systemic symptoms) or Complicated (systemic symptoms)? @ -[deault] Supervisor Pipe Manufacture effects of treatment? @ -[No Eacerbation, Progression, or Severe Exacerbation? @ -[No Pses a threat to life or bodily function? How? (Chest pain, USA, AL, pneumonia, PE, COPD, DKA, ARF, appy, cholecystitis, CVA, Diverticulitis, Homicidal, Suicidal, threat to staff... and all critical care pts) @ -yes, can advance to sepsis, can cause spinal cord injury Diagnosis/symptom? @ -Acute cholecystitis Acute, or Chronic, or Acute on Chronic? @ -Acute Uncomplicated (without systemic symptoms) or Complicated (systemic symptoms)? @ -Complicated Side effects of treatment? @ -none Exacerbation, Progression, or Severe Exacerbation] @ -no Poses a threat to life or bodily function? @ -Can advance to sepsis, septic shock and - Lab Data Result diagrams: 07/19/23 20:45 07/19/23 20:45 Lab Results 07/19/23 07/19/23 Range/Units 20:45 20:45 WBC 9.4 (3.8-10.6) k/uL RBC 4.44 (3.80-5.40) m/uL Hgb 10.8 L (11.4-16.0) gm/dL Hct 33.3 L (34.0-46.0) % MCV 75.1 L (80.0-100.0) fL MCH 24.3 L (25.0-35.0) pg MCHC 32.3 (31.0-37.0) g/dL RDW 18.0 H (11.5-15.5) % Plt Count 409 D (150-450) k/uL MPV 8.7 Neutrophils % 81 % Lymphocytes % 13 % Monocytes % 4 % Eosinophils % 1 % Basophils % 0 % Neutrophils # 7.6 (1.3-7.7) k/uL Lymphocytes # 1.2 (1.0-4.8) k/uL Monocytes # 0.4 (0-1.0) k/uL Eosinophils # 0.1 (0-0.7) k/uL Basophils # 0.0 (0-0.2) k/uL Hypochromasia Slight Anisocytosis Slight Microcytosis Moderate Sodium 136 L (137-145) mmol/L Potassium 4.1 (3.5-5.1) mmol/L Chloride 100 (98-107) mmol/L Carbon Dioxide 21 L (22-30) mmol/L Anion Gap 15 mmol/L BUN 15 (7-17) mg/dL Creatinine 0.57 (0.52-1.04) mg/dL Est GFR (CKD-EPI)AfAm >90 (>60 ml/min/1.73 sqM) Est GFR (CKD-EPI)NonAf >90 (>60 ml/min/1.73 sqM) Glucose 118 H (74-99) mg/dL Calcium 9.7 (8.4-10.2) mg/dL Total Bilirubin 2.3 H (0.2-1.3) mg/dL AST 459 H (14-36) U/L ALT 295 H (4-34) U/L Alkaline Phosphatase 255 H (38-126) U/L C-Reactive Protein 5.3 H (<1.0) mg/dL Total Protein 8.4 H (6.3-8.2) g/dL Albumin 4.2 (3.5-5.0) g/dL Lipase 96 (23-300) U/L Disposition Clinical Impression: Acute cholecystitis, Biliary obstruction, Osteomyelitis, IV drug user, Hepatitis C antibody positive in blood, Transaminitis Disposition: ADMITTED IP TO THIS HOSP Condition: Serious Referrals: None,Stated [Primary Care Provider] - 1-2 days - Out of Hospital Transfer - Req. Specs Out of Hospital Transfer - Requested Specifics: Other Emergency Center ([facility])
--- NOTE | 2023-07-20 00:35 | CT ---
EXAM: CT Abdomen and Pelvis With Intravenous Contrast CLINICAL HISTORY: ITS.REASON CT Reason: abdominal pain TECHNIQUE: Axial computed tomography images of the abdomen and pelvis with intravenous contrast. CTDI is 11.2 mGy and DLP is 562.4 mGy-cm. This CT exam was performed using one or more of the following dose reduction techniques: automated exposure control, adjustment of the mA and/or kV according to patient size, and/or use of iterative reconstruction technique. COMPARISON: No relevant prior studies available. FINDINGS: ABDOMEN: Liver: Enlarged heterogeneous liver measuring 22 cm. Gallbladder and bile ducts: Gallbladder is distended and thick-walled potentially representing cholecystitis. Dilated intrahepatic and extrahepatic biliary tree. No radiopaque obstructing stone. Pancreas: Unremarkable. Spleen: Spleen is enlarged measuring 14 cm. Adrenals: Unremarkable. Kidneys and ureters: Unremarkable. No obstructing stones. No hydronephrosis. Stomach and bowel: No bowel obstruction. Moderate colonic stool burden. PELVIS: Appendix: No findings to suggest acute appendicitis. Bladder: Unremarkable. Reproductive: Right ovarian cyst measuring 3 cm. ABDOMEN and PELVIS: Intraperitoneal space: Trace free fluid in the pelvis. No free air. Bones/joints: Erosive endplate changes at L3-4 highly concerning for discitis osteomyelitis. Soft tissues: Unremarkable. Vasculature: Unremarkable. Lymph nodes: Nonspecific retroperitoneal adenopathy. IMPRESSION: 1. Erosive endplate changes at L3-4 highly concerning for discitis osteomyelitis. Recommend MRI with and without contrast for further evaluation. 2. Gallbladder is distended and thick-walled potentially representing cholecystitis. Dilated intrahepatic and extrahepatic biliary tree. No radiopaque obstructing stone. Consider MRCP for further evaluation. 3. Enlarged heterogeneous liver measuring 22 cm. 4. Splenomegaly. 5. Right ovarian cyst measuring 3 cm. 6. Trace free fluid in the pelvis. 7. Nonspecific retroperitoneal adenopathy. <MYCVCSECTION> Communications: 07/20/23 00:38 Call Doctor Regarding Above results, called Dr. Powell on 07/20 00:38 (-05:00)
[2023-07-20] MEDS ORDERED: metroNIDAZOLE-NS PMX 500 MG in SALINE 1 100ML.BAG IVPB STA (00:38)
[2023-07-20] MEDS ORDERED: VANCOMYCIN IV PER PHARMACY 1 EACH MISC MISCELLANE PRN (00:38)
[2023-07-20] MEDS ORDERED: VANCOMYCIN 1,000 MG in SODIUM CHLORIDE 0.9% 250 ML IVPB STA (00:43)
[2023-07-20] MEDS ORDERED: HYDROmorphone 1 MG/ML 1 ML SYRINGE IM STA (00:47)
--- NOTE | 2023-07-20 02:11 | US ---
EXAM: US Abdomen Limited, Right Upper Quadrant CLINICAL HISTORY: ITS.REASON US Reason: transaminitis TECHNIQUE: Real-time ultrasound of the right upper quadrant with image documentation. COMPARISON: CT abdomen pelvis on the same date FINDINGS: Liver: Unremarkable. No mass. Gallbladder: Gallbladder is distended with a few stones layering dependently. No wall thickening or pericholecystic fluid. Positive sonographic Ramirez sign. Common bile duct: Dilated CBD measuring up to 9 mm. No radiopaque stone identified within the CBD. Pancreas: Unremarkable as visualized. Right kidney: Unremarkable. No hydronephrosis. IMPRESSION: 1. Gallbladder is distended with a few stones layering dependently. No wall thickening or pericholecystic fluid. Positive sonographic Ramirez sign. 2. Dilated CBD measuring up to 9 mm. No radiopaque stone identified within the CBD.
[2023-07-20 02:20] VITALS: BP 124/88; PULSE 72
[2023-07-20] MEDS ORDERED: VANCOMYCIN 1,000 MG in SODIUM CHLORIDE 0.9% 250 ML IVPB SCH (09:00)
== END 2023-07-20 02:20 | disposition other institution (70) ==
LOC: EC 19:33
DX: K81.0 Acute cholecystitis (principal); K83.1 Obstruction of bile duct; M86.9 Osteomyelitis, unspecified; F19.90 Other psychoactive substance use, unspecified, uncomplicated; R74.01 Elevation of levels of liver transaminase levels; M46.46 Discitis, unspecified, lumbar region; K82.8 Other specified diseases of gallbladder; D64.9 Anemia, unspecified; J45.909 Unspecified asthma, uncomplicated; F12.90 Cannabis use, unspecified, uncomplicated; Z87.891 Personal history of nicotine dependence; Z88.0 Allergy status to penicillin; Z90.49 Acquired absence of other specified parts of digestive tract; Z91.018 Allergy to other foods
CPT/HCPCS: 36415; 80053; 83690; 85025; 86140; 87040; 76705; 74177; 99285; 96365; 96375 ×3; 96376; 96361; 96372; J2270 ×2; J2405; J0696; J1170; Q9967; J1836